=== PATIENT | male | born 1965 | race Caucasian/White ===

== ENCOUNTER 2020-12-14 12:51 | Observation (INO) ==
[2020-12-14 13:39] LABS: Hematocrit 52.4 % (37.5-50.1); Hemoglobin 16.7 g/dL (12.9-16.9); Mean Corpuscular HGB Conc 31.9 g/dL (31.6-35.5); Mean Corpuscular Volume 94.1 fL (83.0-100.0); Mean Platelet Volume 10.5 fL (9.4-12.4); Platelet Count 256 K/mcL (140-400); Red Blood Count 5.57 M/mcL (4.19-5.50); Red Cell Distribution Width 19.9 % (11.5-14.5)
[2020-12-14 13:52] LABS: INR 1.3; Prothrombin Time 14.6 Seconds (9.4-12.1)
[2020-12-14 13:54] LABS: Activated Partial Thrombo Time 26.8 Seconds (26.0-36.0)
[2020-12-14 14:00] LABS: Troponin I 0.05 ng/mL (< 0.04)
[2020-12-14 14:13] LABS: BUN/Creatinine Ratio 12 (6-26); Blood Urea Nitrogen 15 mg/dL (6-20); Calcium 8.9 mg/dL (8.6-10.3); Carbon Dioxide 24 mEq/L (23-29); Chloride 107 mEq/L (98-107); Glucose 116 mg/dL (70-105); Osmolality,Calculated 292 (280-300); Potassium 3.7 mEq/L (3.5-5.1); Sodium 140 mEq/L (136-145); eGFR For African Americans > 60 (> 60); eGFR For Non-African Americans 58 (> 60)
[2020-12-14] MEDS ORDERED: Aspirin 81 MG TAB.CHEW PO ONE (14:38)
[2020-12-14] MEDS ORDERED: Naloxone 0.4 MG/ML INJ IVP PRN (15:55)
[2020-12-14 16:15] LABS: Cholesterol 160 mg/dL (< 200); HDL Cholesterol 20 mg/dL (40-59); LDL Cholesterol,Calculated 120 mg/dL (< 100); Triglycerides 100 mg/dL (< 150)
[2020-12-14] MEDS ORDERED: Perflutren Lipid Microsphere 1.3 ML in 0.9 % Sodium Chloride 8.7 ML IVP PRN (17:02)
[2020-12-14] MEDS ORDERED: Furosemide 40 MG/4 ML VIAL IVP ONE (18:05)
[2020-12-14 20:49] LABS: Amphetamine Screen,Urine Negative ng/mL (Cutoff=1000); Barbiturate Screen,Urine Negative ng/mL (Cutoff=200); Benzodiazepines Screen,Urine Negative ng/mL (Cutoff=200); Cannabinoid Screen,Urine Positive ng/mL (Cutoff = 50); Cocaine Screen,Urine Negative ng/mL (Cutoff= 300); Opiate Screen,Urine Negative ng/mL (Cutoff=300); Phencyclidine Screen,Urine Negative ng/mL (Cutoff=25)
[2020-12-14] MEDS ORDERED: traZODone 50 MG TABLET PO SCH (21:00)
[2020-12-14] MEDS: Sacubitril/Valsartan 24/26 MG 1 TABLET PO SCH (22:01)
[2020-12-15 00:42] LABS: Estimated Average Glucose 123 mg/dl; Hemoglobin A1C 5.9 %
[2020-12-15 00:49] LABS: Basophils # 0.1 K/mcL (0.0-0.2); Eosinophils % 0.6 %; Hematocrit 47.7 % (37.5-50.1); Immature Granulocytes % 0.4 % (0-4); Lymphocytes # 1.1 K/mcL (0.6-4.6); Mean Corpuscular HGB Conc 31.7 g/dL (31.6-35.5); Mean Corpuscular Hemoglobin 29.5 pg (28.0-33.3); Mean Corpuscular Volume 93.2 fL (83.0-100.0); Mean Platelet Volume 10.4 fL (9.4-12.4); Monocytes # 0.8 K/mcL (0.0-1.3); Monocytes % 11.8 %; Neutrophils # 4.7 K/mcL (1.6-8.9); Platelet Count 231 K/mcL (140-400); Red Blood Count 5.12 M/mcL (4.19-5.50); Red Cell Distribution Width 19.2 % (11.5-14.5); Segmented Neutrophils % 70.2 %; White Blood Count 6.8 K/mcL (4.3-11.1)
[2020-12-15 00:52] LABS: Hemoglobin 15.1 g/dL (12.9-16.9)
[2020-12-15 01:01] LABS: BUN/Creatinine Ratio 12 (6-26); Blood Urea Nitrogen 14 mg/dL (6-20); Calcium 8.1 mg/dL (8.6-10.3); Carbon Dioxide 27 mEq/L (23-29); Chloride 105 mEq/L (98-107); Glucose 103 mg/dL (70-105); Magnesium 2.1 mg/dL (1.6-2.6); Osmolality,Calculated 291 (280-300); Potassium 3.4 mEq/L (3.5-5.1); Sodium 140 mEq/L (136-145); eGFR For African Americans > 60 (> 60); eGFR For Non-African Americans > 60 (> 60)
[2020-12-15] MEDS ORDERED: Isosorbide MONOnitrate (24 HR) 30 MG TAB.ER.24H PO SCH (09:00)
[2020-12-15] MEDS ORDERED: Metoprolol XL (24 HR) Succ 25 MG TAB.ER.24H PO SCH (09:00)
[2020-12-15] MEDS ORDERED: *HR* Amiodarone 200 MG TABLET PO SCH (09:00)
[2020-12-15] MEDS ORDERED: Aspirin Enteric Coated 81 MG Tablet PO SCH (09:00)
[2020-12-15] MEDS: Sacubitril/Valsartan 24/26 MG 1 TABLET PO SCH (09:58)
[2020-12-15] MEDS ORDERED: Metoprolol XL (24 HR) Succ 25 MG TAB.ER.24H PO ONE (12:48)
[2020-12-15] MEDS ORDERED: Spironolactone 12.5 MG TABLET PO SCH (13:00)
[2020-12-15 15:11] VITALS: BP 116/71
[2020-12-16] MEDS ORDERED: Metoprolol XL (24 HR) Succ 25 MG TAB.ER.24H PO SCH (09:00)
== END 2020-12-15 19:45 | disposition home or self-care (01) ==
LOC: 3BNU 12:51 → EMEROOARM 12:51 → 3BNU 16:57
PROVIDERS: ADMIT Internal Medicine; ATTEND Internal Medicine

== ENCOUNTER 2021-03-04 22:34 | Inpatient (IN) ==
[2021-03-05] MEDS ORDERED: Ondansetron 4 MG/2 ML VIAL IVP PRN (01:04)
[2021-03-05] MEDS ORDERED: Naloxone 0.4 MG/ML INJ IVP PRN (01:04)
[2021-03-05] MEDS ORDERED: 0.9 % Sodium Chloride 1,000 ML IVC ONE (01:38)
[2021-03-05] MEDS ORDERED: Dextrose Gel 15 GM/37.5 ML TUBE PO PRN ×2 (01:49)
[2021-03-05] MEDS ORDERED: D5% in Water 1,000 ML IVC PRN (01:49)
[2021-03-05] MEDS ORDERED: *HR* Dextrose 50 % in Water (Vial) 50 ML VIAL IVP PRN (01:49)
[2021-03-05 02:51] LABS: Basophils # 0.1 K/mcL (0.0-0.2); Basophils % 0.7 %; Eosinophils # 0.1 K/mcL (0.0-0.6); Eosinophils % 0.6 %; Hematocrit 41.3 % (37.5-50.1); Immature Granulocytes % 0.4 % (0-4); Lymphocytes # 1.7 K/mcL (0.6-4.6); Lymphocytes % 11.2 %; Mean Corpuscular HGB Conc 31.5 g/dL (31.6-35.5); Mean Corpuscular Hemoglobin 30.4 pg (28.0-33.3); Mean Corpuscular Volume 96.5 fL (83.0-100.0); Mean Platelet Volume 10.7 fL (9.4-12.4); Monocytes # 1.4 K/mcL (0.0-1.3); Monocytes % 9.5 %; Neutrophils # 11.5 K/mcL (1.6-8.9); Platelet Count 245 K/mcL (140-400); Red Blood Count 4.28 M/mcL (4.19-5.50); Red Cell Distribution Width 15.5 % (11.5-14.5); Segmented Neutrophils % 77.6 %; White Blood Count 14.9 K/mcL (4.3-11.1)
[2021-03-05 03:13] LABS: Alanine Aminotransferase 11 Units/L (7-52); Albumin 3.2 g/dL (3.5-5.7); Alkaline Phosphatase 59 Units/L (34-104); Aspartate Amino Transferase 16 Units/L (13-39); BUN/Creatinine Ratio 17 (6-26); Bilirubin,Total 0.7 mg/dL (0.3-1.0); Blood Urea Nitrogen 19 mg/dL (6-20); Calcium 8.7 mg/dL (8.6-10.3); Carbon Dioxide 24 mEq/L (23-29); Chloride 107 mEq/L (98-107); Globulin 3.1 g/dL (2.4-3.5); Glucose 82 mg/dL (70-105); Magnesium 1.9 mg/dL (1.6-2.6); Osmolality,Calculated 289 (280-300); Phosphorous 4.1 mg/dL (2.7-4.5); Potassium 4.3 mEq/L (3.5-5.1); Sodium 139 mEq/L (136-145); Total Protein 6.3 g/dL (6.4-8.9); eGFR For African Americans > 60 (> 60); eGFR For Non-African Americans > 60 (> 60)
[2021-03-05] MEDS: Insulin LISPRO 300 UNITS/3 ML VIAL SUBQ SCH ×3 (07:55→19:30)
[2021-03-05] MEDS: Piperacillin/Tazobactam 3.375 GM in 0.9 % Sodium Chloride Mini Bag 100 ML IVPB SCH ×2 (07:55→17:07)
[2021-03-05] MEDS: Sacubitril/Valsartan 24/26 MG 1 TABLET PO SCH (21:37)
[2021-03-05] MEDS: Isosorbide MONOnitrate (24 HR) 30 MG TAB.ER.24H PO SCH (21:38)
[2021-03-05] MEDS: Metoprolol XL (24 HR) Succ 25 MG TAB.ER.24H PO SCH (21:41)
[2021-03-06] MEDS: Piperacillin/Tazobactam 3.375 GM in 0.9 % Sodium Chloride Mini Bag 100 ML IVPB SCH ×3 (00:11→16:13)
[2021-03-06 01:11] LABS: Hematocrit 39.8 % (37.5-50.1); Hemoglobin 12.8 g/dL (12.9-16.9); Mean Corpuscular HGB Conc 32.2 g/dL (31.6-35.5); Mean Corpuscular Hemoglobin 30.9 pg (28.0-33.3); Mean Corpuscular Volume 96.1 fL (83.0-100.0); Mean Platelet Volume 10.9 fL (9.4-12.4); Platelet Count 238 K/mcL (140-400); Red Blood Count 4.14 M/mcL (4.19-5.50); Red Cell Distribution Width 15.6 % (11.5-14.5); White Blood Count 10.8 K/mcL (4.3-11.1)
[2021-03-06 01:32] LABS: Alanine Aminotransferase 9 Units/L (7-52); Albumin 3.2 g/dL (3.5-5.7); Albumin/Globulin Ratio 1.1 (1.1-2.2); Alkaline Phosphatase 58 Units/L (34-104); Aspartate Amino Transferase 13 Units/L (13-39); BUN/Creatinine Ratio 13 (6-26); Blood Urea Nitrogen 12 mg/dL (6-20); Calcium 8.5 mg/dL (8.6-10.3); Carbon Dioxide 23 mEq/L (23-29); Chloride 105 mEq/L (98-107); Glucose 72 mg/dL (70-105); Osmolality,Calculated 280 (280-300); Potassium 4.3 mEq/L (3.5-5.1); Sodium 136 mEq/L (136-145); Total Protein 6.2 g/dL (6.4-8.9); eGFR For African Americans > 60 (> 60); eGFR For Non-African Americans > 60 (> 60)
[2021-03-06] MEDS: Insulin LISPRO 300 UNITS/3 ML VIAL SUBQ SCH ×4 (06:09→18:28)
[2021-03-06] MEDS ORDERED: 0.9 % Sodium Chloride Mini Bag 100 ML ONE (08:44)
[2021-03-06] MEDS: *HR* Amiodarone 200 MG TABLET PO SCH (10:57)
[2021-03-06] MEDS: Sacubitril/Valsartan 24/26 MG 1 TABLET PO SCH ×2 (10:57→21:21)
[2021-03-06] MEDS: Isosorbide MONOnitrate (24 HR) 30 MG TAB.ER.24H PO SCH ×2 (10:57→21:21)
[2021-03-06] MEDS: Metoprolol XL (24 HR) Succ 25 MG TAB.ER.24H PO SCH ×2 (10:58→21:21)
[2021-03-06] MEDS: (Dapagliflozin Propanediol [Farxiga] 10 MG Tablet) PO SCH (10:59)
[2021-03-06] MEDS: Apixaban 5 MG TABLET PO SCH (21:20)
[2021-03-07] MEDS: Insulin LISPRO 300 UNITS/3 ML VIAL SUBQ SCH ×4 (00:12→20:12)
[2021-03-07] MEDS: Piperacillin/Tazobactam 3.375 GM in 0.9 % Sodium Chloride Mini Bag 100 ML IVPB SCH ×3 (00:23→20:12)
[2021-03-07 05:50] LABS: Hematocrit 43.6 % (37.5-50.1); Hemoglobin 13.7 g/dL (12.9-16.9); Mean Corpuscular HGB Conc 31.4 g/dL (31.6-35.5); Mean Corpuscular Hemoglobin 29.8 pg (28.0-33.3); Mean Platelet Volume 10.9 fL (9.4-12.4); Platelet Count 275 K/mcL (140-400); Red Blood Count 4.59 M/mcL (4.19-5.50); Red Cell Distribution Width 15.7 % (11.5-14.5)
[2021-03-07 06:09] LABS: Alanine Aminotransferase 8 Units/L (7-52); Albumin 3.4 g/dL (3.5-5.7); Alkaline Phosphatase 62 Units/L (34-104); Aspartate Amino Transferase 12 Units/L (13-39); BUN/Creatinine Ratio 10 (6-26); Bilirubin,Total 1.1 mg/dL (0.3-1.0); Blood Urea Nitrogen 8 mg/dL (6-20); Calcium 8.6 mg/dL (8.6-10.3); Carbon Dioxide 23 mEq/L (23-29); Chloride 105 mEq/L (98-107); Globulin 3.3 g/dL (2.4-3.5); Glucose 85 mg/dL (70-105); Osmolality,Calculated 280 (280-300); Potassium 4.2 mEq/L (3.5-5.1); Sodium 136 mEq/L (136-145); Total Protein 6.7 g/dL (6.4-8.9); eGFR For African Americans > 60 (> 60); eGFR For Non-African Americans > 60 (> 60)
[2021-03-07 08:16] VITALS: TEMP 97.6; O2SAT 96
[2021-03-07] MEDS: Apixaban 5 MG TABLET PO SCH (08:40)
[2021-03-07] MEDS: Sacubitril/Valsartan 24/26 MG 1 TABLET PO SCH (08:40)
[2021-03-07] MEDS: (Dapagliflozin Propanediol [Farxiga] 10 MG Tablet) PO SCH (08:41)
[2021-03-07] MEDS: *HR* Amiodarone 200 MG TABLET PO SCH (08:41)
[2021-03-07] MEDS: Isosorbide MONOnitrate (24 HR) 30 MG TAB.ER.24H PO SCH (08:41)
[2021-03-07] MEDS: Metoprolol XL (24 HR) Succ 25 MG TAB.ER.24H PO SCH (08:41)
[2021-03-07 15:17] VITALS: BP 109/75; PULSE 51
== END 2021-03-07 20:19 | disposition home or self-care (01) | DRG 244 ==
LOC: 3BNU → SUATTDRO 03-05 00:28
PROVIDERS: ADMIT Family Medicine; ATTEND Internal Medicine

== ENCOUNTER 2021-03-15 10:31 | Inpatient (IN) ==
[2021-03-15] MEDS ORDERED: Naloxone 0.4 MG/ML INJ IVP PRN (15:37)
[2021-03-15 16:52] LABS: Basophils # 0.1 K/mcL (0.0-0.2); Basophils % 0.8 %; Eosinophils % 0.2 %; Hematocrit 45.4 % (37.5-50.1); Hemoglobin 14.9 g/dL (12.9-16.9); Immature Granulocytes % 0.6 % (0-4); Lymphocytes # 1.5 K/mcL (0.6-4.6); Lymphocytes % 14.9 %; Mean Corpuscular HGB Conc 32.8 g/dL (31.6-35.5); Mean Corpuscular Hemoglobin 31.7 pg (28.0-33.3); Mean Corpuscular Volume 96.6 fL (83.0-100.0); Mean Platelet Volume 11.1 fL (9.4-12.4); Monocytes # 1.2 K/mcL (0.0-1.3); Monocytes % 11.7 %; Neutrophils # 7.1 K/mcL (1.6-8.9); Nucleated Red Blood Cells 0.5 /100 WBC (0); Platelet Count 256 K/mcL (140-400); Red Cell Distribution Width 18.4 % (11.5-14.5); Segmented Neutrophils % 71.8 %; White Blood Count 9.8 K/mcL (4.3-11.1)
[2021-03-15] MEDS: 0.9 % Sodium Chloride 1,000 ML IVC SCH (16:52)
[2021-03-15 17:18] LABS: Alanine Aminotransferase 162 Units/L (7-52); Albumin 2.2 g/dL (3.5-5.7); Alkaline Phosphatase 155 Units/L (34-104); Aspartate Amino Transferase 62 Units/L (13-39); BUN/Creatinine Ratio 9 (6-26); Bilirubin,Total 0.9 mg/dL (0.3-1.0); Blood Urea Nitrogen 7 mg/dL (6-20); Carbon Dioxide 20 mEq/L (23-29); Chloride 116 mEq/L (98-107); Globulin 2.2 g/dL (2.4-3.5); Glucose 77 mg/dL (70-105); Osmolality,Calculated 289 (280-300); Potassium 3.2 mEq/L (3.5-5.1); Sodium 141 mEq/L (136-145); Total Protein 4.4 g/dL (6.4-8.9); eGFR For African Americans > 60 (> 60); eGFR For Non-African Americans > 60 (> 60)
[2021-03-15] MEDS ORDERED: Nitroglycerin 0.4 MG TAB.SUBL SL PRN (17:43)
[2021-03-15] MEDS: Calcium Gluconate 1gm/50mL 1 GM/50 ML BAG IVPB SCH ×2 (17:49→18:38)
[2021-03-15] MEDS ORDERED: Potassium Chloride Elixir 20 MEQ/15 ML UDC PO ONE (18:08)
[2021-03-15 20:45] LABS: Influenza A PCR Negative (Negative); Influenza B PCR Negative (Negative); Resp. Syncytial Virus PCR Negative (Negative)
[2021-03-15 20:46] LABS: SARS-CoV-2 by PCR (In House) Negative (Negative)
[2021-03-15] MEDS: Metoprolol XL (24 HR) Succ 25 MG TAB.ER.24H PO SCH (21:05)
[2021-03-15] MEDS: Sacubitril/Valsartan 24/26 MG 1 TABLET PO SCH (21:05)
[2021-03-15] MEDS: Isosorbide MONOnitrate (24 HR) 30 MG TAB.ER.24H PO SCH (21:05)
[2021-03-16] MEDS: Cefepime HCl 1,000 MG in Water for inj. (sterile) 10 ML IVP SCH ×3 (00:45→18:01)
[2021-03-16] MEDS: 0.9 % Sodium Chloride 1,000 ML IVC SCH ×3 (00:45→18:00)
[2021-03-16] MEDS: MetroNIDAZOLE 500 MG/100 ML 500 MG/100 ML BAG IVPB SCH ×3 (01:45→18:01)
[2021-03-16 06:16] LABS: Basophils # 0.1 K/mcL (0.0-0.2); Basophils % 0.8 %; Eosinophils % 0.4 %; Hematocrit 43.9 % (37.5-50.1); Hemoglobin 14.5 g/dL (12.9-16.9); Immature Granulocytes % 0.5 % (0-4); Lymphocytes # 1.3 K/mcL (0.6-4.6); Lymphocytes % 15.9 %; Mean Corpuscular Hemoglobin 31.6 pg (28.0-33.3); Mean Corpuscular Volume 95.6 fL (83.0-100.0); Mean Platelet Volume 11.2 fL (9.4-12.4); Monocytes # 1.1 K/mcL (0.0-1.3); Monocytes % 12.4 %; Neutrophils # 5.9 K/mcL (1.6-8.9); Nucleated Red Blood Cells 0.5 /100 WBC (0); Platelet Count 258 K/mcL (140-400); Red Blood Count 4.59 M/mcL (4.19-5.50); Red Cell Distribution Width 18.3 % (11.5-14.5); White Blood Count 8.5 K/mcL (4.3-11.1)
[2021-03-16 06:32] LABS: BUN/Creatinine Ratio 10 (6-26); Blood Urea Nitrogen 9 mg/dL (6-20); Calcium 8.4 mg/dL (8.6-10.3); Carbon Dioxide 22 mEq/L (23-29); Chloride 110 mEq/L (98-107); Glucose 80 mg/dL (70-105); Osmolality,Calculated 286 (280-300); Potassium 4.6 mEq/L (3.5-5.1); Sodium 139 mEq/L (136-145); eGFR For African Americans > 60 (> 60); eGFR For Non-African Americans > 60 (> 60)
[2021-03-16] MEDS: Isosorbide MONOnitrate (24 HR) 30 MG TAB.ER.24H PO SCH ×2 (08:44→20:26)
[2021-03-16] MEDS: Sacubitril/Valsartan 24/26 MG 1 TABLET PO SCH ×2 (08:45→20:26)
[2021-03-16] MEDS: Metoprolol XL (24 HR) Succ 25 MG TAB.ER.24H PO SCH ×2 (08:45→20:26)
[2021-03-16] MEDS ORDERED: Lidocaine -MPF 1% 5 ML AMPUL INFILT ONE (08:59)
[2021-03-16] MEDS ORDERED: *HR* Dextrose 50 % in Water (Vial) 50 ML VIAL IVP PRN (09:00)
[2021-03-16] MEDS ORDERED: traZODone 50 MG TABLET PO SCH ×2 (09:00→21:00)
[2021-03-16] MEDS ORDERED: D5% in Water 1,000 ML IVC PRN (09:00)
[2021-03-16] MEDS ORDERED: Dextrose Gel 15 GM/37.5 ML TUBE PO PRN ×2 (09:00)
[2021-03-16] MEDS ORDERED: *HR* Amiodarone 200 MG TABLET PO SCH (09:00)
[2021-03-16 09:52] LABS: Alanine Aminotransferase 186 Units/L (7-52); Albumin 2.9 g/dL (3.5-5.7); Alkaline Phosphatase 214 Units/L (34-104); Aspartate Amino Transferase 67 Units/L (13-39); Bilirubin,Direct 0.5 mg/dL (0.0-0.2); Bilirubin,Indirect 0.8 mg/dL (0.0-1.0); Bilirubin,Total 1.3 mg/dL (0.3-1.0); Globulin 2.8 g/dL (2.4-3.5); Magnesium 1.6 mg/dL (1.6-2.6); Phosphorous 2.4 mg/dL (2.7-4.5); Total Protein 5.7 g/dL (6.4-8.9)
[2021-03-16] MEDS ORDERED: D10% in Water 500 ML IVC PRN (11:27)
[2021-03-16] MEDS: Insulin LISPRO 300 UNITS/3 ML VIAL SUBQ SCH ×3 (12:34→20:27)
[2021-03-16 13:50] LABS: Hepatitis B Surface Antigen Nonreactive (Nonreactive)
[2021-03-16 14:19] LABS: Hepatitis B Core IgM Nonreactive (Nonreactive)
[2021-03-16 14:20] LABS: Hepatitis A Antibody IgM Nonreactive (Nonreactive); Hepatitis C Virus Antibody Nonreactive (Nonreactive)
[2021-03-16] MEDS ORDERED: Clinimix E 5%-15% SOLUTION 2,000 ML with MVI, adult with vitamin K 10 ML IVC SCH (17:00)
[2021-03-16] MEDS ORDERED: Morphine Sulfate 2 MG/ML SYRINGE IVP ONE (20:05)
[2021-03-16] MEDS ORDERED: Melatonin 3 MG TABLET PO PRN (20:31)
[2021-03-17] MEDS: Cefepime HCl 1,000 MG in Water for inj. (sterile) 10 ML IVP SCH ×2 (00:59→17:25)
[2021-03-17] MEDS: MetroNIDAZOLE 500 MG/100 ML 500 MG/100 ML BAG IVPB SCH ×2 (01:00→17:26)
[2021-03-17] MEDS: Insulin LISPRO 300 UNITS/3 ML VIAL SUBQ SCH ×4 (01:01→20:00)
[2021-03-17] MEDS: 0.9 % Sodium Chloride 1,000 ML IVC SCH (01:04)
[2021-03-17 06:09] LABS: Basophils # 0.1 K/mcL (0.0-0.2); Basophils % 0.5 %; Eosinophils % 0.2 %; Hematocrit 41.5 % (37.5-50.1); Hemoglobin 13.4 g/dL (12.9-16.9); Immature Granulocytes % 0.5 % (0-4); Lymphocytes # 0.9 K/mcL (0.6-4.6); Lymphocytes % 9.3 %; Mean Corpuscular HGB Conc 32.3 g/dL (31.6-35.5); Mean Corpuscular Hemoglobin 31.7 pg (28.0-33.3); Mean Corpuscular Volume 98.1 fL (83.0-100.0); Monocytes # 1.6 K/mcL (0.0-1.3); Monocytes % 16.3 %; Neutrophils # 6.9 K/mcL (1.6-8.9); Nucleated Red Blood Cells 0.5 /100 WBC (0); Platelet Count 223 K/mcL (140-400); Red Blood Count 4.23 M/mcL (4.19-5.50); Red Cell Distribution Width 18.6 % (11.5-14.5); Segmented Neutrophils % 73.2 %; White Blood Count 9.5 K/mcL (4.3-11.1)
[2021-03-17] MEDS: Metoprolol XL (24 HR) Succ 25 MG TAB.ER.24H PO SCH (06:34)
[2021-03-17 06:41] LABS: BUN/Creatinine Ratio 14 (6-26); Blood Urea Nitrogen 12 mg/dL (6-20); Calcium 7.9 mg/dL (8.6-10.3); Carbon Dioxide 24 mEq/L (23-29); Chloride 110 mEq/L (98-107); Glucose 95 mg/dL (70-105); Magnesium 1.9 mg/dL (1.6-2.6); Osmolality,Calculated 290 (280-300); Phosphorous 2.8 mg/dL (2.7-4.5); Potassium 4.4 mEq/L (3.5-5.1); Sodium 140 mEq/L (136-145); Triglycerides 93 mg/dL (< 150); eGFR For African Americans > 60 (> 60); eGFR For Non-African Americans > 60 (> 60)
[2021-03-17] MEDS ORDERED: *HR* Propofol 200 MG/20 ML VIAL IVP ONE (07:05)
[2021-03-17] MEDS ORDERED: Ondansetron 4 MG/2 ML VIAL ONE ×2 (07:06→12:22)
[2021-03-17] MEDS ORDERED: *HR* FentaNYL (PF) 100 MCG/2 ML VIAL ONE ×2 (07:06→10:27)
[2021-03-17] MEDS ORDERED: *HR* Midazolam HCl 2 MG/2 ML VIAL ONE (07:06)
[2021-03-17] MEDS ORDERED: Lidocaine -MPF 2% 2 ML VIAL ONE ×2 (07:06→08:13)
[2021-03-17] MEDS ORDERED: Lidocaine HCL 4 ML Topical Solution (Laryng-O-Jet Kit Sterile Pak) TP ONE ×2 (07:06→07:07)
[2021-03-17] MEDS ORDERED: *HR* Rocuronium Bromide 50 MG/5 ML VIAL ONE ×2 (07:06→10:24)
[2021-03-17] MEDS ORDERED: *HR* Etomidate 40 MG/20 ML VIAL IVP ONE (07:13)
[2021-03-17] MEDS ORDERED: *HR* Phenylephrine 10 MG/ML VIAL ONE (07:16)
[2021-03-17] MEDS ORDERED: EPHEDrine 50 MG/ML VIAL ONE (07:18)
[2021-03-17] MEDS ORDERED: *HR* Vasopressin 20 UNIT/ML VIAL ONE (07:23)
[2021-03-17] MEDS ORDERED: Albumin Human 5% 25.0 GM/500 ML IV.SOLN ONE (07:23)
[2021-03-17] MEDS ORDERED: Acetaminophen IV 1,000 MG/100 ML BAG IVPB ONE (07:24)
[2021-03-17] MEDS ORDERED: Heparin 1,000 UNITS/500 mL 500 ML ONE (07:38)
[2021-03-17] MEDS ORDERED: *HR* HYDROmorphone PF 0.5 MG/0.5 ML SYRINGE IVP PRN (09:46)
[2021-03-17] MEDS ORDERED: *HR* OxyCODONE Immed Rel 5 MG TABLET PO PRN (09:46)
[2021-03-17] MEDS ORDERED: Promethazine 6.25 MG in Water for inj. (sterile) 20 ML IVPB PRN (09:46)
[2021-03-17] MEDS ORDERED: Ondansetron 4 MG/2 ML VIAL IVP PRN (09:46)
[2021-03-17 10:59] LABS: Alanine Aminotransferase 148 Units/L (7-52); Albumin 2.8 g/dL (3.5-5.7); Aspartate Amino Transferase 50 Units/L (13-39); Bilirubin,Direct 0.4 mg/dL (0.0-0.2); Bilirubin,Indirect 0.8 mg/dL (0.0-1.0); Bilirubin,Total 1.2 mg/dL (0.3-1.0); Globulin 2.8 g/dL (2.4-3.5); Total Protein 5.6 g/dL (6.4-8.9)
[2021-03-17 11:35] LABS: Alkaline Phosphatase 185 Units/L (34-104)
[2021-03-17] MEDS ORDERED: *HR* HYDROMORPHONE 2 MG/ML VIAL ONE (11:46)
[2021-03-17] MEDS ORDERED: Sugammadex Sodium 200 MG/2 ML VIAL IV ONE (11:49)
[2021-03-17] MEDS ORDERED: Naloxone 0.4 MG/ML INJ IVP PRN (14:33)
[2021-03-17] MEDS ORDERED: Morphine PCA 30 MG/ 30 ML 30 ML PCA.VIAL IVC PRN (14:33)
[2021-03-17] MEDS ORDERED: Clinimix E 5%-15% SOLUTION 2,000 ML with MVI, adult with vitamin K 10 ML IVC SCH ×3 (14:33→17:00)
[2021-03-17] MEDS ORDERED: *HR* Dextrose 50 % in Water (Vial) 50 ML VIAL IVP PRN (14:33)
[2021-03-17] MEDS ORDERED: Melatonin 3 MG TABLET PO PRN (14:33)
[2021-03-17] MEDS ORDERED: Dextrose Gel 15 GM/37.5 ML TUBE PO PRN ×2 (14:33)
[2021-03-17] MEDS ORDERED: Nitroglycerin 0.4 MG TAB.SUBL SL PRN (14:33)
[2021-03-17] MEDS ORDERED: D5% in Water 1,000 ML IVC PRN (14:33)
[2021-03-17] MEDS ORDERED: D10% in Water 500 ML IVC PRN (14:33)
[2021-03-17] MEDS ORDERED: *HR* LORazepam 2 MG/ML VIAL IVP PRN (14:33)
[2021-03-17] MEDS: *HR* Metoprolol 5 MG/5 ML VIAL IVP SCH (17:27)
[2021-03-17] MEDS: *HR* Heparin 5,000 UNIT/ML VIAL SQ SCH (17:27)
[2021-03-17] MEDS ORDERED: cefOXitin 1,000 MG, Sodium Chloride IRRigation 1,000 ML IR ONE (17:30)
[2021-03-17] MEDS ORDERED: 0.9 % Sodium Chloride 500 ML ONE (17:46)
[2021-03-17] MEDS ORDERED: Ketorolac 15 MG/ML VIAL IVP SCH (18:00)
[2021-03-17] MEDS ORDERED: *HR* Metoprolol 5 MG/5 ML VIAL IVP SCH (18:00)
[2021-03-17] MEDS: Acetaminophen IV 1,000 MG/100 ML BAG IVPB SCH (18:39)
[2021-03-17] MEDS ORDERED: traZODone 50 MG TABLET PO SCH (21:00)
[2021-03-17] MEDS ORDERED: Metoprolol XL (24 HR) Succ 25 MG TAB.ER.24H PO SCH (21:00)
[2021-03-18] MEDS: MetroNIDAZOLE 500 MG/100 ML 500 MG/100 ML BAG IVPB SCH ×5 (00:06→23:57)
[2021-03-18] MEDS: Cefepime HCl 1,000 MG in Water for inj. (sterile) 10 ML IVP SCH ×5 (00:07→23:57)
[2021-03-18] MEDS: Acetaminophen IV 1,000 MG/100 ML BAG IVPB SCH ×4 (00:07→23:51)
[2021-03-18] MEDS: *HR* Metoprolol 5 MG/5 ML VIAL IVP SCH ×2 (00:08→06:13)
[2021-03-18] MEDS: Insulin LISPRO 300 UNITS/3 ML VIAL SUBQ SCH ×6 (00:09→21:58)
[2021-03-18] MEDS: *HR* Heparin 5,000 UNIT/ML VIAL SQ SCH ×2 (06:14→17:53)
[2021-03-18 08:04] LABS: Basophils % 0.1 %; Hematocrit 45.3 % (37.5-50.1); Hemoglobin 14.5 g/dL (12.9-16.9); Immature Granulocytes % 0.6 % (0-4); Lymphocytes # 0.5 K/mcL (0.6-4.6); Lymphocytes % 3.1 %; Mean Corpuscular Hemoglobin 31.8 pg (28.0-33.3); Mean Corpuscular Volume 99.3 fL (83.0-100.0); Mean Platelet Volume 11.3 fL (9.4-12.4); Monocytes # 1.8 K/mcL (0.0-1.3); Monocytes % 11.3 %; Neutrophils # 13.6 K/mcL (1.6-8.9); Nucleated Red Blood Cells 0.2 /100 WBC (0); Platelet Count 219 K/mcL (140-400); Red Blood Count 4.56 M/mcL (4.19-5.50); Red Cell Distribution Width 18.8 % (11.5-14.5); Segmented Neutrophils % 84.9 %
[2021-03-18 08:21] LABS: Albumin 3.3 g/dL (3.5-5.7); Albumin/Globulin Ratio 1.1 (1.1-2.2); Bilirubin,Direct 0.2 mg/dL (0.0-0.2); Bilirubin,Indirect 0.5 mg/dL (0.0-1.0); Bilirubin,Total 0.7 mg/dL (0.3-1.0); Globulin 3.1 g/dL (2.4-3.5); Total Protein 6.4 g/dL (6.4-8.9)
[2021-03-18 08:22] LABS: BUN/Creatinine Ratio 17 (6-26); Blood Urea Nitrogen 13 mg/dL (6-20); Calcium 8.6 mg/dL (8.6-10.3); Carbon Dioxide 26 mEq/L (23-29); Chloride 107 mEq/L (98-107); Glucose 212 mg/dL (70-105); Osmolality,Calculated 296 (280-300); Phosphorous 2.7 mg/dL (2.7-4.5); Potassium 4.2 mEq/L (3.5-5.1); Sodium 140 mEq/L (136-145); eGFR For African Americans > 60 (> 60); eGFR For Non-African Americans > 60 (> 60)
[2021-03-18] MEDS ORDERED: *HR* Amiodarone 200 MG TABLET PO SCH (09:00)
[2021-03-18] MEDS ORDERED: Pantoprazole 40 MG VIAL IVP SCH ×2 (09:00)
[2021-03-18] MEDS: Pantoprazole 40 MG VIAL IVP SCH (09:07)
[2021-03-18] MEDS ORDERED: Chloraseptic Spray 177 ML BOTTLE MM PRN (13:04)
[2021-03-18] MEDS ORDERED: Saliva Stimulant 44.3ml BOTTLE PO PRN (13:04)
[2021-03-18] MEDS: 0.9 % Sodium Chloride 1,000 ML IVC SCH (13:33)
[2021-03-18] MEDS ORDERED: Clinimix E 5%-15% SOLUTION 2,000 ML with MVI, adult with vitamin K 10 ML IVC SCH (17:00)
[2021-03-18] MEDS: Ketorolac 15 MG/ML VIAL IVP SCH ×2 (17:53→23:57)
[2021-03-18] MEDS ORDERED: *HR* Metoprolol 5 MG/5 ML VIAL IVP SCH (18:00)
[2021-03-19] MEDS: Insulin LISPRO 300 UNITS/3 ML VIAL SUBQ SCH ×6 (00:05→20:58)
[2021-03-19 04:56] LABS: Basophils % 0.1 %; Hematocrit 38.8 % (37.5-50.1); Immature Granulocytes % 0.4 % (0-4); Lymphocytes # 0.5 K/mcL (0.6-4.6); Lymphocytes % 3.6 %; Mean Corpuscular HGB Conc 31.4 g/dL (31.6-35.5); Mean Corpuscular Hemoglobin 31.3 pg (28.0-33.3); Mean Corpuscular Volume 99.5 fL (83.0-100.0); Mean Platelet Volume 11.3 fL (9.4-12.4); Monocytes # 1.1 K/mcL (0.0-1.3); Monocytes % 7.7 %; Neutrophils # 12.1 K/mcL (1.6-8.9); Nucleated Red Blood Cells 0.1 /100 WBC (0); Platelet Count 159 K/mcL (140-400); Red Cell Distribution Width 18.6 % (11.5-14.5); Segmented Neutrophils % 88.2 %; White Blood Count 13.7 K/mcL (4.3-11.1)
[2021-03-19 04:57] LABS: Hemoglobin 12.2 g/dL (12.9-16.9)
[2021-03-19] MEDS: *HR* Heparin 5,000 UNIT/ML VIAL SQ SCH ×2 (05:08→17:53)
[2021-03-19] MEDS: Ketorolac 15 MG/ML VIAL IVP SCH ×4 (05:08→23:35)
[2021-03-19 05:18] LABS: BUN/Creatinine Ratio 22 (6-26); Blood Urea Nitrogen 16 mg/dL (6-20); Calcium 8.4 mg/dL (8.6-10.3); Carbon Dioxide 29 mEq/L (23-29); Chloride 109 mEq/L (98-107); Glucose 141 mg/dL (70-105); Magnesium 1.7 mg/dL (1.6-2.6); Osmolality,Calculated 294 (280-300); Phosphorous 3.2 mg/dL (2.7-4.5); Potassium 4.6 mEq/L (3.5-5.1); Sodium 140 mEq/L (136-145); eGFR For African Americans > 60 (> 60); eGFR For Non-African Americans > 60 (> 60)
[2021-03-19] MEDS: Acetaminophen IV 1,000 MG/100 ML BAG IVPB SCH ×3 (10:04→23:31)
[2021-03-19] MEDS: Cefepime HCl 1,000 MG in Water for inj. (sterile) 10 ML IVP SCH ×3 (10:07→23:34)
[2021-03-19] MEDS: MetroNIDAZOLE 500 MG/100 ML 500 MG/100 ML BAG IVPB SCH ×3 (10:07→23:35)
[2021-03-19] MEDS: Pantoprazole 40 MG VIAL IVP SCH (10:08)
[2021-03-19] MEDS ORDERED: Clinimix E 5%-20% SOLUTION 2,000 ML with MVI, adult with vitamin K 10 ML IVC SCH (17:00)
[2021-03-20] MEDS: Insulin LISPRO 300 UNITS/3 ML VIAL SUBQ SCH ×6 (02:47→23:28)
[2021-03-20] MEDS: Ketorolac 15 MG/ML VIAL IVP SCH ×4 (05:11→22:22)
[2021-03-20] MEDS: *HR* Heparin 5,000 UNIT/ML VIAL SQ SCH ×2 (05:11→18:20)
[2021-03-20 06:37] LABS: Basophils % 0.1 %; Eosinophils % 0.1 %; Hematocrit 41.3 % (37.5-50.1); Hemoglobin 13.1 g/dL (12.9-16.9); Immature Granulocytes % 0.7 % (0-4); Lymphocytes # 0.8 K/mcL (0.6-4.6); Lymphocytes % 5.6 %; Mean Corpuscular HGB Conc 31.7 g/dL (31.6-35.5); Mean Corpuscular Hemoglobin 31.3 pg (28.0-33.3); Mean Corpuscular Volume 98.6 fL (83.0-100.0); Mean Platelet Volume 11.9 fL (9.4-12.4); Monocytes # 1.7 K/mcL (0.0-1.3); Monocytes % 11.2 %; Neutrophils # 12.3 K/mcL (1.6-8.9); Platelet Count 156 K/mcL (140-400); Red Blood Count 4.19 M/mcL (4.19-5.50); Red Cell Distribution Width 18.5 % (11.5-14.5); Segmented Neutrophils % 82.3 %; White Blood Count 14.9 K/mcL (4.3-11.1)
[2021-03-20 06:59] LABS: BUN/Creatinine Ratio 26 (6-26); Blood Urea Nitrogen 19 mg/dL (6-20); Calcium 8.3 mg/dL (8.6-10.3); Carbon Dioxide 28 mEq/L (23-29); Chloride 105 mEq/L (98-107); Glucose 145 mg/dL (70-105); Magnesium 1.8 mg/dL (1.6-2.6); Osmolality,Calculated 287 (280-300); Phosphorous 3.7 mg/dL (2.7-4.5); Potassium 3.9 mEq/L (3.5-5.1); Sodium 136 mEq/L (136-145); eGFR For African Americans > 60 (> 60); eGFR For Non-African Americans > 60 (> 60)
[2021-03-20] MEDS: Acetaminophen IV 1,000 MG/100 ML BAG IVPB SCH ×2 (10:05→16:07)
[2021-03-20] MEDS: MetroNIDAZOLE 500 MG/100 ML 500 MG/100 ML BAG IVPB SCH (10:23)
[2021-03-20] MEDS: Pantoprazole 40 MG VIAL IVP SCH (10:25)
[2021-03-20] MEDS: Cefepime HCl 1,000 MG in Water for inj. (sterile) 10 ML IVP SCH ×2 (10:27→16:06)
[2021-03-20] MEDS: metroNIDAZOLE 500 MG TABLET PO SCH ×2 (15:48→22:18)
[2021-03-20] MEDS ORDERED: Clinimix E 5%-20% SOLUTION 2,000 ML with MVI, adult with vitamin K 10 ML IVC SCH (17:00)
[2021-03-20] MEDS: Isosorbide MONOnitrate (24 HR) 30 MG TAB.ER.24H PO SCH (22:16)
[2021-03-20] MEDS: Sacubitril/Valsartan 24/26 MG 1 TABLET PO SCH (22:20)
[2021-03-21] MEDS: Acetaminophen IV 1,000 MG/100 ML BAG IVPB SCH ×3 (01:02→16:13)
[2021-03-21] MEDS: Cefepime HCl 1,000 MG in Water for inj. (sterile) 10 ML IVP SCH ×4 (01:03→23:55)
[2021-03-21] MEDS: Insulin LISPRO 300 UNITS/3 ML VIAL SUBQ SCH ×6 (01:52→21:04)
[2021-03-21 04:59] LABS: Basophils % 0.2 %; Eosinophils % 0.4 %; Hematocrit 37.7 % (37.5-50.1); Immature Granulocytes % 0.6 % (0-4); Lymphocytes # 0.8 K/mcL (0.6-4.6); Lymphocytes % 7.8 %; Mean Corpuscular HGB Conc 30.2 g/dL (31.6-35.5); Mean Corpuscular Hemoglobin 31.4 pg (28.0-33.3); Mean Corpuscular Volume 103.9 fL (83.0-100.0); Mean Platelet Volume 11.6 fL (9.4-12.4); Monocytes # 1.1 K/mcL (0.0-1.3); Monocytes % 10.8 %; Neutrophils # 8.3 K/mcL (1.6-8.9); Platelet Count 148 K/mcL (140-400); Red Blood Count 3.63 M/mcL (4.19-5.50); Red Cell Distribution Width 18.6 % (11.5-14.5); Segmented Neutrophils % 80.2 %; White Blood Count 10.3 K/mcL (4.3-11.1)
[2021-03-21 05:05] LABS: Hemoglobin 11.4 g/dL (12.9-16.9)
[2021-03-21] MEDS: Ketorolac 15 MG/ML VIAL IVP SCH ×3 (05:32→17:42)
[2021-03-21] MEDS: *HR* Heparin 5,000 UNIT/ML VIAL SQ SCH (05:33)
[2021-03-21 07:43] LABS: BUN/Creatinine Ratio 25 (6-26); Blood Urea Nitrogen 15 mg/dL (6-20); Carbon Dioxide 28 mEq/L (23-29); Chloride 108 mEq/L (98-107); Glucose 144 mg/dL (70-105); Magnesium 1.7 mg/dL (1.6-2.6); Osmolality,Calculated 291 (280-300); Phosphorous 3.4 mg/dL (2.7-4.5); Sodium 139 mEq/L (136-145); eGFR For African Americans > 60 (> 60); eGFR For Non-African Americans > 60 (> 60)
[2021-03-21] MEDS: Sacubitril/Valsartan 24/26 MG 1 TABLET PO SCH ×2 (10:14→21:03)
[2021-03-21] MEDS: Cyanocobalamin (B-12) 1,000 MCG TABLET PO SCH (10:14)
[2021-03-21] MEDS: Isosorbide MONOnitrate (24 HR) 30 MG TAB.ER.24H PO SCH ×2 (10:14→21:03)
[2021-03-21] MEDS: metroNIDAZOLE 500 MG TABLET PO SCH ×3 (10:14→21:03)
[2021-03-21] MEDS: Pantoprazole 40 MG VIAL IVP SCH (10:16)
[2021-03-21] MEDS: Apixaban 5 MG TABLET PO SCH ×2 (10:44→21:03)
[2021-03-21] MEDS ORDERED: Clinimix E 5%-20% SOLUTION 2,000 ML with MVI, adult with vitamin K 10 ML IVC SCH (17:00)
[2021-03-22] MEDS: Insulin LISPRO 300 UNITS/3 ML VIAL SUBQ SCH ×4 (00:18→17:08)
[2021-03-22] MEDS: Acetaminophen IV 1,000 MG/100 ML BAG IVPB SCH ×2 (00:57→09:31)
[2021-03-22] MEDS: Ketorolac 15 MG/ML VIAL IVP SCH ×2 (05:40)
[2021-03-22] MEDS: Pantoprazole 40 MG VIAL IVP SCH (09:35)
[2021-03-22] MEDS: Cefepime HCl 1,000 MG in Water for inj. (sterile) 10 ML IVP SCH ×2 (09:35→17:12)
[2021-03-22] MEDS: metroNIDAZOLE 500 MG TABLET PO SCH ×2 (09:36→17:11)
[2021-03-22] MEDS: Isosorbide MONOnitrate (24 HR) 30 MG TAB.ER.24H PO SCH (09:36)
[2021-03-22] MEDS: Sacubitril/Valsartan 24/26 MG 1 TABLET PO SCH (09:36)
[2021-03-22] MEDS: Cyanocobalamin (B-12) 1,000 MCG TABLET PO SCH (09:36)
[2021-03-22] MEDS: Apixaban 5 MG TABLET PO SCH (09:36)
[2021-03-22 10:02] LABS: Basophils % 0.2 %; Eosinophils # 0.1 K/mcL (0.0-0.6); Eosinophils % 0.5 %; Hematocrit 43.2 % (37.5-50.1); Immature Granulocytes % 0.7 % (0-4); Lymphocytes # 0.7 K/mcL (0.6-4.6); Lymphocytes % 4.7 %; Mean Corpuscular HGB Conc 32.4 g/dL (31.6-35.5); Mean Corpuscular Hemoglobin 31.3 pg (28.0-33.3); Mean Platelet Volume 11.5 fL (9.4-12.4); Monocytes # 1.2 K/mcL (0.0-1.3); Monocytes % 8.3 %; Neutrophils # 12.7 K/mcL (1.6-8.9); Platelet Count 192 K/mcL (140-400); Red Blood Count 4.48 M/mcL (4.19-5.50); Segmented Neutrophils % 85.6 %; White Blood Count 14.9 K/mcL (4.3-11.1)
[2021-03-22 10:27] LABS: BUN/Creatinine Ratio 21 (6-26); Blood Urea Nitrogen 15 mg/dL (6-20); Calcium 8.5 mg/dL (8.6-10.3); Carbon Dioxide 27 mEq/L (23-29); Chloride 105 mEq/L (98-107); Glucose 100 mg/dL (70-105); Magnesium 1.6 mg/dL (1.6-2.6); Osmolality,Calculated 285 (280-300); Phosphorous 2.5 mg/dL (2.7-4.5); Potassium 4.5 mEq/L (3.5-5.1); Sodium 137 mEq/L (136-145); eGFR For African Americans > 60 (> 60); eGFR For Non-African Americans > 60 (> 60)
[2021-03-22 11:03] VITALS: O2SAT 91
[2021-03-22 11:17] LABS: Mean Corpuscular Volume 96.4 fL (83.0-100.0)
[2021-03-22] MEDS: *HR* OxyCODONE/APAP 10/325 TABLET PO PRN ×2 (12:15→18:07)
[2021-03-22 12:50] LABS: Hematocrit 42.4 % (37.5-50.1); Hemoglobin 13.6 g/dL (12.9-16.9)
[2021-03-22 14:24] VITALS: BP 119/85; PULSE 66; TEMP 97.5
== END 2021-03-22 18:23 | disposition home or self-care (01) | DRG 441 ==
LOC: 3ANU → SUATTDRO 15:03
PROVIDERS: ADMIT Internal Medicine; ATTEND Internal Medicine

== ENCOUNTER 2021-03-24 00:39 | Inpatient (IN) ==
[2021-03-24] MEDS ORDERED: Isovue-370 500 ML BOTTLE IVP ONE ×2 (01:21→04:56)
[2021-03-24] MEDS ORDERED: Ondansetron 4 MG/2 ML VIAL IVP ONE (01:22)
[2021-03-24] MEDS ORDERED: Morphine Sulfate 2 MG/ML SYRINGE IVP ONE (01:22)
[2021-03-24] MEDS ORDERED: 0.9 % Sodium Chloride 1,000 ML IVC ONE ×2 (01:23→03:43)
[2021-03-24 01:35] LABS: Hematocrit 41.1 % (37.5-50.1); Hemoglobin 13.3 g/dL (12.9-16.9); Immature Granulocytes % 0.8 % (0-4); Lymphocytes % 2.6 %; Mean Corpuscular HGB Conc 32.4 g/dL (31.6-35.5); Mean Corpuscular Hemoglobin 31.1 pg (28.0-33.3); Mean Platelet Volume 10.8 fL (9.4-12.4); Monocytes % 7.9 %; Platelet Count 218 K/mcL (140-400); Red Blood Count 4.28 M/mcL (4.19-5.50); Red Cell Distribution Width 18.4 % (11.5-14.5); Segmented Neutrophils % 88.6 %
[2021-03-24 01:36] LABS: Basophils % 0.1 %; Lymphocytes # 0.5 K/mcL (0.6-4.6); Monocytes # 1.5 K/mcL (0.0-1.3); Neutrophils # 16.8 K/mcL (1.6-8.9); Nucleated Red Blood Cells 0.1 /100 WBC (0)
[2021-03-24 01:41] LABS: Alanine Aminotransferase 33 Units/L (7-52); Albumin 2.9 g/dL (3.5-5.7); Albumin/Globulin Ratio 0.8 (1.1-2.2); Alkaline Phosphatase 128 Units/L (34-104); Aspartate Amino Transferase 37 Units/L (13-39); BUN/Creatinine Ratio 21 (6-26); Bilirubin,Direct 0.7 mg/dL (0.0-0.2); Bilirubin,Indirect 1.1 mg/dL (0.0-1.0); Bilirubin,Total 1.8 mg/dL (0.3-1.0); Blood Urea Nitrogen 17 mg/dL (6-20); Calcium 8.8 mg/dL (8.6-10.3); Carbon Dioxide 23 mEq/L (23-29); Chloride 105 mEq/L (98-107); Globulin 3.5 g/dL (2.4-3.5); Glucose 134 mg/dL (70-105); Lipase 9 Units/L (11-82); Osmolality,Calculated 290 (280-300); Potassium 4.4 mEq/L (3.5-5.1); Sodium 138 mEq/L (136-145); Total Protein 6.4 g/dL (6.4-8.9); eGFR For African Americans > 60 (> 60); eGFR For Non-African Americans > 60 (> 60)
[2021-03-24 02:09] LABS: Troponin I 0.12 ng/mL (< 0.04)
[2021-03-24] MEDS ORDERED: Piperacillin/Tazobactam 3.375 GM in 0.9 % Sodium Chloride Mini Bag 100 ML IVPB ONE (02:30)
[2021-03-24] MEDS ORDERED: Vancomycin 1,500 MG/265 ML IV.SOLN IVPB ONE (03:00)
[2021-03-24] MEDS: DilTIAZem 50 MG/50 ML IV.SOLN IVC SCH ×2 (03:58→08:14)
[2021-03-24 04:52] LABS: Bacteria,Urine Few per hpf (None-Few); Bilirubin,Urine Negative (Negative); Blood,Urine Large (Negative); Budding Yeast,Urine Few per hpf (None Seen); Clarity,Urine Clear (Clear); Color,Urine Light-Orange (Yellow); Glucose,Urine (UA) Normal (Normal); Ketones,Urine Negative (Negative); Leukocyte Esterase,Urine Negative (Negative); Mucus,Urine Few per lpf (None-Few); Nitrite,Urine Negative (Negative); PH,Urine 6.5 pH Units (5.0-8.0); Protein,Urine 70 mg/dL (Neg-Trace); RBC,Urine 50-100 per hpf (0-3); Specific Gravity,Urine > 1.030 (1.010-1.025); Urobilinogen,Urine Normal (Normal)
[2021-03-24 05:26] LABS: Adenovirus Not Detected (Not Detect); Coronavirus 229E Not Detected (Not Detect); Coronavirus HKU1 Not Detected (Not Detect); Coronavirus NL63 Not Detected (Not Detect); Coronavirus OC43 Not Detected (Not Detect); Human Metapneumovirus Not Detected (Not Detect); Human Rhinovirus/Enterovirus Not Detected (Not Detect); Influenza A Subtype 2009 H1 Not Detected (Not Detect); SARS-CoV-2 Not Detected (Not Detect)
[2021-03-24 05:27] LABS: Bordetella Pertussis Not Detected (Not Detect); Chlamydophila pneumoniae Not Detected (Not Detect); Influenza B Not Detected (Not Detect); Mycoplasma pneumoniae Not Detected (Not Detect); Parainfluenza Virus 1 Not Detected (Not Detect); Parainfluenza Virus 2 Not Detected (Not Detect); Parainfluenza Virus 3 Not Detected (Not Detect); Parainfluenza Virus 4 Not Detected (Not Detect); Respiratory Syncytial Virus Not Detected (Not Detect)
[2021-03-24] MEDS ORDERED: Ondansetron 4 MG/2 ML VIAL IVP PRN (07:46)
[2021-03-24] MEDS ORDERED: Naloxone 0.4 MG/ML INJ IVP PRN (07:46)
[2021-03-24] MEDS ORDERED: 0.9 % Sodium Chloride 1,000 ML IVC SCH (08:00)
[2021-03-24] MEDS: Acetaminophen 325 MG TABLET PO PRN ×3 (08:25→22:35)
[2021-03-24] MEDS: Azithromycin 500 MG in 0.9 % Sodium Chloride 250 ML IVPB SCH (08:25)
[2021-03-24] MEDS ORDERED: NON-FORMULARY MEDICATION 1 EACH EACH (Pantoprazole Sodium [Protonix] 40 MG Tablet.Dr) PO SCH (09:00)
[2021-03-24] MEDS ORDERED: 0.9 % Sodium Chloride 1,000 ML ONE (09:58)
[2021-03-24] MEDS: *HR* Amiodarone 200 MG TABLET PO SCH (10:18)
[2021-03-24] MEDS: Cyanocobalamin (B-12) 1,000 MCG TABLET PO SCH (10:19)
[2021-03-24] MEDS: Pantoprazole 40 MG VIAL IVP SCH (10:20)
[2021-03-24 12:32] LABS: ABG Base Excess 2 mEq/L (-2 to 3); ABG HCO3 26 mEq/L (21-27); ABG Oxygen Saturation 88 % (95-98); ABG PCO2 39 mmHg (35-45); ABG PH 7.43 pH Units (7.32-7.45); ABG PO2 53 mmHg (85-104); ABG TCO2 27 mEq/L (20-26)
[2021-03-24] MEDS: Piperacillin/Tazobactam 3.375 GM in 0.9 % Sodium Chloride Mini Bag 100 ML IVPB SCH ×2 (12:36→18:34)
[2021-03-24] MEDS: Metoprolol XL (24 HR) Succ 25 MG TAB.ER.24H PO SCH (13:50)
[2021-03-24] MEDS: Levalbuterol Neb 0.63 MG/3 ML IH SCH ×2 (15:36→21:27)
[2021-03-24] MEDS: Vancomycin 1,250 MG/262.5 ML IV.SOLN IVPB SCH (17:21)
[2021-03-24] MEDS: Apixaban 5 MG TABLET PO SCH (19:53)
[2021-03-24] MEDS ORDERED: *HR* Metoprolol 5 MG/5 ML VIAL IVP ONE (23:52)
[2021-03-25 01:14] LABS: Basophils % 0.1 %; Hematocrit 40.1 % (37.5-50.1); Hemoglobin 13.2 g/dL (12.9-16.9); Lymphocytes # 0.7 K/mcL (0.6-4.6); Lymphocytes % 3.6 %; Mean Corpuscular HGB Conc 32.9 g/dL (31.6-35.5); Mean Corpuscular Hemoglobin 32.2 pg (28.0-33.3); Mean Corpuscular Volume 97.8 fL (83.0-100.0); Mean Platelet Volume 11.3 fL (9.4-12.4); Monocytes # 0.7 K/mcL (0.0-1.3); Neutrophils # 17.1 K/mcL (1.6-8.9); Nucleated Red Blood Cells 0.4 /100 WBC (0); Platelet Count 242 K/mcL (140-400); Red Cell Distribution Width 18.7 % (11.5-14.5); Segmented Neutrophils % 91.3 %; White Blood Count 18.7 K/mcL (4.3-11.1)
[2021-03-25 01:28] LABS: BUN/Creatinine Ratio 24 (6-26); Blood Urea Nitrogen 21 mg/dL (6-20); Calcium 8.3 mg/dL (8.6-10.3); Carbon Dioxide 23 mEq/L (23-29); Chloride 108 mEq/L (98-107); Glucose 138 mg/dL (70-105); Magnesium 1.9 mg/dL (1.6-2.6); Osmolality,Calculated 291 (280-300); Phosphorous 3.7 mg/dL (2.7-4.5); Potassium 4.7 mEq/L (3.5-5.1); Sodium 138 mEq/L (136-145); eGFR For African Americans > 60 (> 60); eGFR For Non-African Americans > 60 (> 60)
[2021-03-25] MEDS: Piperacillin/Tazobactam 3.375 GM in 0.9 % Sodium Chloride Mini Bag 100 ML IVPB SCH ×3 (03:13→18:32)
[2021-03-25] MEDS: Levalbuterol Neb 0.63 MG/3 ML IH SCH ×4 (03:45→22:00)
[2021-03-25] MEDS: Vancomycin 1,250 MG/262.5 ML IV.SOLN IVPB SCH (04:40)
[2021-03-25] MEDS: Acetaminophen 325 MG TABLET PO PRN (07:28)
[2021-03-25] MEDS: Pantoprazole 40 MG VIAL IVP SCH (08:16)
[2021-03-25] MEDS: *HR* Amiodarone 200 MG TABLET PO SCH (08:16)
[2021-03-25] MEDS: Cyanocobalamin (B-12) 1,000 MCG TABLET PO SCH (08:16)
[2021-03-25] MEDS: Azithromycin 500 MG in 0.9 % Sodium Chloride 250 ML IVPB SCH (08:16)
[2021-03-25] MEDS: Metoprolol XL (24 HR) Succ 25 MG TAB.ER.24H PO SCH (08:16)
[2021-03-25] MEDS: Apixaban 5 MG TABLET PO SCH (08:16)
[2021-03-25] MEDS ORDERED: 0.9 % Sodium Chloride 1,000 ML ONE (09:46)
[2021-03-25] MEDS ORDERED: Isovue-370 500 ML BOTTLE IVP ONE (12:06)
[2021-03-25] MEDS ORDERED: Micafungin 100 MG in 0.9 % Sodium Chloride Mini Bag 100 ML IVPB SCH (12:15)
[2021-03-25] MEDS ORDERED: Norepinephrine 4 MG/254 ML IV.SOLN IVC SCH ×2 (12:15→19:34)
[2021-03-25] MEDS ORDERED: Isovue-370 500 ML BOTTLE PO ONE (12:31)
[2021-03-25] MEDS ORDERED: Albumin 25% 25gram/100mL 25 GM/100 ML IV.SOLN IVPB ONE (13:18)
[2021-03-25] MEDS ORDERED: *HR* HYDROmorphone (PF) 1 MG/ML SYRINGE IVP PRN ×2 (14:30→19:34)
[2021-03-25] MEDS ORDERED: Perflutren Lipid Microsphere 1.3 ML in 0.9 % Sodium Chloride 8.7 ML IVP PRN (15:11)
[2021-03-25] MEDS ORDERED: Vancomycin 1,500 MG/265 ML IV.SOLN IVPB SCH (17:00)
[2021-03-25] MEDS ORDERED: Doxycycline 100 MG in 0.9 % Sodium Chloride Mini Bag 100 ML IVPB SCH (18:00)
[2021-03-25] MEDS ORDERED: EPINEPHrine 1 MG/ML VIAL ONE (18:49)
[2021-03-25] MEDS ORDERED: *HR* Etomidate 40 MG/20 ML VIAL IVP ONE (18:51)
[2021-03-25] MEDS ORDERED: *HR* Propofol 200 MG/20 ML VIAL IVP ONE (18:51)
[2021-03-25] MEDS ORDERED: Lidocaine -MPF 2% 2 ML VIAL ONE ×2 (18:54→19:22)
[2021-03-25] MEDS ORDERED: *HR* Rocuronium Bromide 50 MG/5 ML VIAL ONE ×2 (18:54→20:46)
[2021-03-25] MEDS ORDERED: *HR* Vasopressin 20 UNIT/ML VIAL ONE (18:55)
[2021-03-25] MEDS ORDERED: Albumin Human 5% 25.0 GM/500 ML IV.SOLN ONE (18:55)
[2021-03-25] MEDS ORDERED: *HR* Norepinephrine 4 MG/4 ML VIAL IVC ONE (18:55)
[2021-03-25] MEDS ORDERED: *HR* Phenylephrine 10 MG/ML VIAL ONE (18:56)
[2021-03-25] MEDS ORDERED: Lidocaine HCL 4 ML Topical Solution (Laryng-O-Jet Kit Sterile Pak) TP ONE (19:12)
[2021-03-25] MEDS ORDERED: EPHEDrine 50 MG/ML VIAL ONE (19:16)
[2021-03-25] MEDS ORDERED: *HR* FentaNYL (PF) 100 MCG/2 ML VIAL ONE (19:18)
[2021-03-25] MEDS ORDERED: *HR* Midazolam HCl 2 MG/2 ML VIAL ONE (19:19)
[2021-03-25] MEDS ORDERED: Heparin 1,000 UNITS/500 mL 500 ML ONE (19:20)
[2021-03-25] MEDS ORDERED: Ropivacaine/PF 0.5% 30 ML VIAL ONE ×2 (19:28→19:29)
[2021-03-25] MEDS ORDERED: Naloxone 0.4 MG/ML INJ IVP PRN ×2 (19:34→21:36)
[2021-03-25] MEDS ORDERED: Ondansetron 4 MG/2 ML VIAL IVP PRN ×2 (19:34→21:36)
[2021-03-25] MEDS ORDERED: Acetaminophen 325 MG TABLET PO PRN ×2 (19:34→21:36)
[2021-03-25] MEDS ORDERED: Apixaban 5 MG TABLET PO SCH (21:00)
[2021-03-25] MEDS ORDERED: Neostigmine Methylsulfate 3 MG/3 ML SYRINGE ONE (21:17)
[2021-03-25] MEDS ORDERED: FentaNYL (PF) 1,000 MCG/100 ML IV.SOLN IVC SCH (21:45)
[2021-03-25] MEDS ORDERED: Levalbuterol Neb 0.63 MG/3 ML IH SCH (22:00)
[2021-03-25] MEDS: FentaNYL (PF) 1,000 MCG/100 ML IV.SOLN IVC SCH (22:10)
[2021-03-25] MEDS: Norepinephrine 4 MG/254 ML IV.SOLN IVC SCH (22:20)
[2021-03-25] MEDS: Phenylephrine 10 MG in 0.9 % Sodium Chloride 250 ML IVC SCH (23:41)
[2021-03-25] MEDS: Artificial Tears SOLN 15 ML BOTTLE BOTH EYES SCH (23:45)
[2021-03-25] MEDS: Chlorhexidine Rinse 15 ML MOUTHWASH MM SCH (23:45)
[2021-03-25] MEDS ORDERED: Artificial Tears SOLN 15 ML BOTTLE BOTH EYES PRN (23:51)
[2021-03-26] MEDS ORDERED: Piperacillin/Tazobactam 3.375 GM in 0.9 % Sodium Chloride Mini Bag 100 ML IVPB SCH (03:00)
[2021-03-26] MEDS: Piperacillin/Tazobactam 3.375 GM in 0.9 % Sodium Chloride Mini Bag 100 ML IVPB SCH ×3 (03:14→18:38)
[2021-03-26] MEDS: Artificial Tears SOLN 15 ML BOTTLE BOTH EYES SCH ×6 (03:24→23:13)
[2021-03-26 03:27] LABS: Basophils % 0.2 %; Hematocrit 39.6 % (37.5-50.1); Hemoglobin 12.6 g/dL (12.9-16.9); Immature Granulocytes % 1.1 % (0-4); Lymphocytes # 0.3 K/mcL (0.6-4.6); Lymphocytes % 1.9 %; Mean Corpuscular HGB Conc 31.8 g/dL (31.6-35.5); Mean Corpuscular Hemoglobin 31.7 pg (28.0-33.3); Mean Corpuscular Volume 99.7 fL (83.0-100.0); Monocytes # 0.3 K/mcL (0.0-1.3); Monocytes % 1.9 %; Neutrophils # 16.9 K/mcL (1.6-8.9); Nucleated Red Blood Cells 3.5 /100 WBC (0); Platelet Count 288 K/mcL (140-400); Red Blood Count 3.97 M/mcL (4.19-5.50); Segmented Neutrophils % 94.9 %; White Blood Count 17.8 K/mcL (4.3-11.1)
[2021-03-26] MEDS: Levalbuterol Neb 0.63 MG/3 ML IH SCH ×4 (03:34→21:47)
[2021-03-26 03:37] LABS: INR 2.3; Prothrombin Time 25.8 Seconds (9.4-12.1)
[2021-03-26 03:43] LABS: Alanine Aminotransferase 39 Units/L (7-52); Albumin 2.6 g/dL (3.5-5.7); Albumin/Globulin Ratio 0.9 (1.1-2.2); Alkaline Phosphatase 195 Units/L (34-104); Aspartate Amino Transferase 45 Units/L (13-39); BUN/Creatinine Ratio 28 (6-26); Bilirubin,Total 1.3 mg/dL (0.3-1.0); Blood Urea Nitrogen 34 mg/dL (6-20); Calcium 8.1 mg/dL (8.6-10.3); Carbon Dioxide 24 mEq/L (23-29); Chloride 107 mEq/L (98-107); Globulin 2.8 g/dL (2.4-3.5); Glucose 114 mg/dL (70-105); Osmolality,Calculated 294 (280-300); Potassium 5.5 mEq/L (3.5-5.1); Sodium 138 mEq/L (136-145); Total Protein 5.4 g/dL (6.4-8.9); eGFR For African Americans > 60 (> 60); eGFR For Non-African Americans > 60 (> 60)
[2021-03-26] MEDS: Phenylephrine 10 MG in 0.9 % Sodium Chloride 250 ML IVC SCH ×3 (03:55→11:42)
[2021-03-26 04:30] LABS: ABG Base Excess -3 mEq/L (-2 to 3); ABG HCO3 23 mEq/L (21-27); ABG Oxygen Saturation 99 % (95-98); ABG PCO2 43 mmHg (35-45); ABG PH 7.33 pH Units (7.32-7.45); ABG PO2 143 mmHg (85-104); ABG TCO2 24 mEq/L (20-26); Blood Gas Modality AF; Blood Gas VT 500 cc
[2021-03-26] MEDS: Doxycycline 100 MG in 0.9 % Sodium Chloride Mini Bag 100 ML IVPB SCH ×2 (05:19→16:43)
[2021-03-26] MEDS ORDERED: Doxycycline 100 MG in 0.9 % Sodium Chloride Mini Bag 100 ML IVPB SCH (06:00)
[2021-03-26] MEDS: FentaNYL (PF) 1,000 MCG/100 ML IV.SOLN IVC SCH ×2 (06:49→15:36)
[2021-03-26] MEDS: Metoprolol XL (24 HR) Succ 25 MG TAB.ER.24H PO SCH (07:57)
[2021-03-26] MEDS ORDERED: Azithromycin 500 MG in 0.9 % Sodium Chloride 250 ML IVPB SCH (08:00)
[2021-03-26] MEDS ORDERED: *HR* Dextrose 50 % in Water (Vial) 50 ML VIAL IVP ONE (08:04)
[2021-03-26] MEDS ORDERED: Insulin Human Regular 10 UNIT in 0.9 % Sodium Chloride 10 ML IV ONE (08:04)
[2021-03-26] MEDS: Chlorhexidine Rinse 15 ML MOUTHWASH MM SCH ×2 (08:09→19:57)
[2021-03-26] MEDS: Cyanocobalamin (B-12) 1,000 MCG TABLET PO SCH (08:10)
[2021-03-26] MEDS: *HR* Amiodarone 200 MG TABLET PO SCH (08:10)
[2021-03-26] MEDS: Micafungin 100 MG in 0.9 % Sodium Chloride Mini Bag 100 ML IVPB SCH (08:11)
[2021-03-26] MEDS ORDERED: Albumin 25% 25gram/100mL 25 GM/100 ML IV.SOLN IVPB ONE (08:57)
[2021-03-26] MEDS ORDERED: Furosemide 40 MG/4 ML VIAL IVP ONE (08:58)
[2021-03-26] MEDS ORDERED: Cyanocobalamin (B-12) 1,000 MCG TABLET PO SCH (09:00)
[2021-03-26] MEDS ORDERED: Micafungin 100 MG in 0.9 % Sodium Chloride Mini Bag 100 ML IVPB SCH (09:00)
[2021-03-26] MEDS ORDERED: Apixaban 5 MG TABLET PO SCH (09:00)
[2021-03-26] MEDS ORDERED: Metoprolol XL (24 HR) Succ 25 MG TAB.ER.24H PO SCH (09:00)
[2021-03-26] MEDS ORDERED: Pantoprazole 40 MG VIAL IVP SCH ×2 (09:00)
[2021-03-26] MEDS ORDERED: *HR* Amiodarone 200 MG TABLET PO SCH (09:00)
[2021-03-26] MEDS ORDERED: D10% in Water 500 ML IVC PRN (11:05)
[2021-03-26] MEDS ORDERED: D5% in Water 1,000 ML IVC PRN (15:59)
[2021-03-26] MEDS ORDERED: *HR* Dextrose 50 % in Water (Vial) 50 ML VIAL IVP PRN (15:59)
[2021-03-26] MEDS ORDERED: Dextrose Gel 15 GM/37.5 ML TUBE PO PRN ×2 (15:59)
[2021-03-26] MEDS: Insulin LISPRO 300 UNITS/3 ML VIAL SUBQ SCH ×3 (16:42→23:14)
[2021-03-26] MEDS ORDERED: Clinimix 5%-20% SOLUTION 2,000 ML with MVI, adult with vitamin K 10 ML, Sodium Phosph... IVC SCH (17:00)
[2021-03-26] MEDS: Apixaban 5 MG TABLET PO SCH (20:00)
[2021-03-27] MEDS: FentaNYL (PF) 1,000 MCG/100 ML IV.SOLN IVC SCH (02:55)
[2021-03-27] MEDS: Artificial Tears SOLN 15 ML BOTTLE BOTH EYES SCH ×6 (03:18→23:13)
[2021-03-27] MEDS: Insulin LISPRO 300 UNITS/3 ML VIAL SUBQ SCH ×6 (03:19→23:13)
[2021-03-27] MEDS: Piperacillin/Tazobactam 3.375 GM in 0.9 % Sodium Chloride Mini Bag 100 ML IVPB SCH ×3 (03:19→18:06)
[2021-03-27] MEDS: Levalbuterol Neb 0.63 MG/3 ML IH SCH ×4 (04:04→22:17)
[2021-03-27 04:11] LABS: Basophils % 0.2 %; Hematocrit 33.4 % (37.5-50.1); Immature Granulocytes % 0.9 % (0-4); Lymphocytes # 0.3 K/mcL (0.6-4.6); Lymphocytes % 1.5 %; Mean Corpuscular HGB Conc 31.4 g/dL (31.6-35.5); Mean Corpuscular Hemoglobin 31.1 pg (28.0-33.3); Mean Corpuscular Volume 98.8 fL (83.0-100.0); Mean Platelet Volume 11.1 fL (9.4-12.4); Monocytes # 0.5 K/mcL (0.0-1.3); Monocytes % 2.9 %; Neutrophils # 17.5 K/mcL (1.6-8.9); Nucleated Red Blood Cells 2.1 /100 WBC (0); Platelet Count 222 K/mcL (140-400); Red Blood Count 3.38 M/mcL (4.19-5.50); Red Cell Distribution Width 17.8 % (11.5-14.5); Segmented Neutrophils % 94.5 %; White Blood Count 18.5 K/mcL (4.3-11.1)
[2021-03-27 04:12] LABS: Hemoglobin 10.5 g/dL (12.9-16.9)
[2021-03-27 04:19] LABS: ABG Base Excess 3 mEq/L (-2 to 3); ABG HCO3 29 mEq/L (21-27); ABG Oxygen Saturation 93 % (95-98); ABG PCO2 48 mmHg (35-45); ABG PH 7.39 pH Units (7.32-7.45); ABG PO2 67 mmHg (85-104); ABG TCO2 31 mEq/L (20-26); Blood Gas Modality ASSIST CONTROL; Blood Gas VT 500 cc
[2021-03-27] MEDS: Doxycycline 100 MG in 0.9 % Sodium Chloride Mini Bag 100 ML IVPB SCH ×2 (05:20→16:45)
[2021-03-27 06:52] LABS: Alanine Aminotransferase 52 Units/L (7-52); Albumin 2.5 g/dL (3.5-5.7); Alkaline Phosphatase 131 Units/L (34-104); Aspartate Amino Transferase 48 Units/L (13-39); BUN/Creatinine Ratio 33 (6-26); Bilirubin,Total 0.7 mg/dL (0.3-1.0); Blood Urea Nitrogen 29 mg/dL (6-20); Calcium 7.9 mg/dL (8.6-10.3); Carbon Dioxide 31 mEq/L (23-29); Chloride 109 mEq/L (98-107); Globulin 2.4 g/dL (2.4-3.5); Glucose 243 mg/dL (70-105); Magnesium 2.1 mg/dL (1.6-2.6); Osmolality,Calculated 312 (280-300); Phosphorous 2.4 mg/dL (2.7-4.5); Potassium 3.6 mEq/L (3.5-5.1); Sodium 144 mEq/L (136-145); Total Protein 4.9 g/dL (6.4-8.9); Triglycerides 161 mg/dL (< 150); eGFR For African Americans > 60 (> 60); eGFR For Non-African Americans > 60 (> 60)
[2021-03-27] MEDS: Norepinephrine 4 MG/254 ML IV.SOLN IVC SCH ×2 (07:24→20:45)
[2021-03-27] MEDS: Cyanocobalamin (B-12) 1,000 MCG TABLET PO SCH (07:50)
[2021-03-27] MEDS: *HR* Amiodarone 200 MG TABLET PO SCH (07:50)
[2021-03-27] MEDS: Chlorhexidine Rinse 15 ML MOUTHWASH MM SCH ×2 (07:50→20:31)
[2021-03-27] MEDS: Micafungin 100 MG in 0.9 % Sodium Chloride Mini Bag 100 ML IVPB SCH (07:51)
[2021-03-27] MEDS: Apixaban 5 MG TABLET PO SCH ×2 (07:51→20:31)
[2021-03-27] MEDS: Metoprolol XL (24 HR) Succ 25 MG TAB.ER.24H PO SCH (07:51)
[2021-03-27] MEDS ORDERED: *HR* Metoprolol 5 MG/5 ML VIAL IVP ONE (09:26)
[2021-03-27] MEDS: Pantoprazole 40 MG VIAL IVP SCH ×2 (09:29→20:31)
[2021-03-27] MEDS: *HR* Metoprolol 5 MG/5 ML VIAL IVP SCH ×3 (09:39→23:12)
[2021-03-27] MEDS ORDERED: Albumin 25% 25gram/100mL 25 GM/100 ML IV.SOLN IVPB ONE (09:44)
[2021-03-27] MEDS ORDERED: Furosemide 40 MG in 0.9 % Sodium Chloride 50 ML IV ONE (09:50)
[2021-03-27] MEDS ORDERED: Furosemide 40 MG/4 ML VIAL IVP ONE (10:15)
[2021-03-27] MEDS ORDERED: Calcium Gluconate 1gm/50mL 1 GM/50 ML BAG IVPB PRN (12:19)
[2021-03-27] MEDS ORDERED: Potassium Phosphate 44 MEQ in 0.9 % Sodium Chloride 250 ML IVPB PRN (12:19)
[2021-03-27] MEDS: Potassium Chloride 40 MEQ/200 ML BAG IVPB PRN ×2 (13:06→14:04)
[2021-03-27 13:09] LABS: VBG Ionized Calcium 1.15 mmol/L (1.15-1.35)
[2021-03-27] MEDS ORDERED: Clinimix E 5%-15% SOLUTION 2,000 ML with MVI, adult with vitamin K 10 ML IVC SCH (17:00)
[2021-03-28] MEDS: Piperacillin/Tazobactam 3.375 GM in 0.9 % Sodium Chloride Mini Bag 100 ML IVPB SCH ×3 (02:05→18:10)
[2021-03-28] MEDS: Artificial Tears SOLN 15 ML BOTTLE BOTH EYES SCH (04:24)
[2021-03-28] MEDS: Insulin LISPRO 300 UNITS/3 ML VIAL SUBQ SCH ×5 (04:25→20:28)
[2021-03-28] MEDS: Levalbuterol Neb 0.63 MG/3 ML IH SCH ×4 (04:34→22:40)
[2021-03-28 04:41] LABS: Basophils % 0.1 %; Hematocrit 35.6 % (37.5-50.1); Hemoglobin 11.3 g/dL (12.9-16.9); Immature Granulocytes % 1.6 % (0-4); Lymphocytes # 0.5 K/mcL (0.6-4.6); Lymphocytes % 2.2 %; Mean Corpuscular HGB Conc 31.7 g/dL (31.6-35.5); Mean Corpuscular Hemoglobin 31.7 pg (28.0-33.3); Mean Platelet Volume 10.9 fL (9.4-12.4); Monocytes # 0.9 K/mcL (0.0-1.3); Neutrophils # 21.4 K/mcL (1.6-8.9); Nucleated Red Blood Cells 1.7 /100 WBC (0); Platelet Count 267 K/mcL (140-400); Red Blood Count 3.56 M/mcL (4.19-5.50); Red Cell Distribution Width 18.7 % (11.5-14.5); Segmented Neutrophils % 92.1 %; White Blood Count 23.2 K/mcL (4.3-11.1)
[2021-03-28 04:55] LABS: BUN/Creatinine Ratio 41 (6-26); Blood Urea Nitrogen 32 mg/dL (6-20); Calcium 8.5 mg/dL (8.6-10.3); Carbon Dioxide 31 mEq/L (23-29); Chloride 108 mEq/L (98-107); Glucose 162 mg/dL (70-105); Osmolality,Calculated 308 (280-300); Phosphorous 2.8 mg/dL (2.7-4.5); Potassium 4.4 mEq/L (3.5-5.1); Sodium 144 mEq/L (136-145); eGFR For African Americans > 60 (> 60); eGFR For Non-African Americans > 60 (> 60)
[2021-03-28] MEDS: Doxycycline 100 MG in 0.9 % Sodium Chloride Mini Bag 100 ML IVPB SCH ×2 (05:33→17:06)
[2021-03-28] MEDS: *HR* Metoprolol 5 MG/5 ML VIAL IVP SCH ×2 (05:33→12:48)
[2021-03-28] MEDS: Pantoprazole 40 MG VIAL IVP SCH ×2 (08:52→20:28)
[2021-03-28] MEDS: Micafungin 100 MG in 0.9 % Sodium Chloride Mini Bag 100 ML IVPB SCH (08:53)
[2021-03-28] MEDS: Apixaban 5 MG TABLET PO SCH ×2 (08:54→20:27)
[2021-03-28] MEDS: *HR* Amiodarone 200 MG TABLET PO SCH (08:54)
[2021-03-28] MEDS: Cyanocobalamin (B-12) 1,000 MCG TABLET PO SCH (08:54)
[2021-03-28] MEDS ORDERED: Metoprolol XL (24 HR) Succ 25 MG TAB.ER.24H PO SCH (09:00)
[2021-03-28] MEDS: Isosorbide MONOnitrate (24 HR) 30 MG TAB.ER.24H PO SCH ×2 (09:10→20:27)
[2021-03-28] MEDS ORDERED: Morphine Sulfate 2 MG/ML SYRINGE IVP PRN (09:26)
[2021-03-28] MEDS: Sacubitril/Valsartan 24/26 MG 1 TABLET PO SCH ×2 (14:00→20:31)
[2021-03-28 14:16] LABS: BUN/Creatinine Ratio 40 (6-26); Blood Urea Nitrogen 34 mg/dL (6-20); Calcium 8.4 mg/dL (8.6-10.3); Carbon Dioxide 31 mEq/L (23-29); Chloride 108 mEq/L (98-107); Glucose 176 mg/dL (70-105); Osmolality,Calculated 308 (280-300); Potassium 4.7 mEq/L (3.5-5.1); Sodium 143 mEq/L (136-145); eGFR For African Americans > 60 (> 60); eGFR For Non-African Americans > 60 (> 60)
[2021-03-28] MEDS ORDERED: Clinimix E 5%-15% SOLUTION 2,000 ML with MVI, adult with vitamin K 10 ML IVC SCH (17:00)
[2021-03-28] MEDS: Norepinephrine 4 MG/254 ML IV.SOLN IVC SCH (20:38)
[2021-03-29] MEDS: Insulin LISPRO 300 UNITS/3 ML VIAL SUBQ SCH ×7 (00:12→23:16)
[2021-03-29] MEDS: Piperacillin/Tazobactam 3.375 GM in 0.9 % Sodium Chloride Mini Bag 100 ML IVPB SCH ×3 (03:23→17:35)
[2021-03-29 03:46] LABS: Basophils # 0.1 K/mcL (0.0-0.2); Basophils % 0.5 %; Hemoglobin 11.8 g/dL (12.9-16.9); Immature Granulocytes % 4.8 % (0-4); Lymphocytes # 1.3 K/mcL (0.6-4.6); Lymphocytes % 6.1 %; Mean Corpuscular HGB Conc 31.1 g/dL (31.6-35.5); Mean Corpuscular Hemoglobin 31.1 pg (28.0-33.3); Mean Platelet Volume 11.1 fL (9.4-12.4); Monocytes # 0.9 K/mcL (0.0-1.3); Monocytes % 4.4 %; Neutrophils # 17.2 K/mcL (1.6-8.9); Nucleated Red Blood Cells 2.6 /100 WBC (0); Platelet Count 299 K/mcL (140-400); Red Cell Distribution Width 18.8 % (11.5-14.5); Segmented Neutrophils % 84.2 %; White Blood Count 20.5 K/mcL (4.3-11.1)
[2021-03-29 04:06] LABS: BUN/Creatinine Ratio 45 (6-26); Blood Urea Nitrogen 28 mg/dL (6-20); Calcium 8.5 mg/dL (8.6-10.3); Carbon Dioxide 31 mEq/L (23-29); Chloride 105 mEq/L (98-107); Glucose 175 mg/dL (70-105); Magnesium 1.8 mg/dL (1.6-2.6); Osmolality,Calculated 298 (280-300); Potassium 4.7 mEq/L (3.5-5.1); Sodium 139 mEq/L (136-145); eGFR For African Americans > 60 (> 60); eGFR For Non-African Americans > 60 (> 60)
[2021-03-29] MEDS ORDERED: Clinimix E 5%-15% SOLUTION 2,000 ML with MVI, adult with vitamin K 10 ML IVC SCH ×2 (04:27→17:00)
[2021-03-29] MEDS ORDERED: Acetaminophen 325 MG TABLET PO PRN (04:27)
[2021-03-29] MEDS ORDERED: D10% in Water 500 ML IVC PRN (04:27)
[2021-03-29] MEDS ORDERED: Artificial Tears SOLN 15 ML BOTTLE BOTH EYES PRN (04:27)
[2021-03-29] MEDS ORDERED: Calcium Gluconate 1gm/50mL 1 GM/50 ML BAG IVPB PRN (04:27)
[2021-03-29] MEDS ORDERED: D5% in Water 1,000 ML IVC PRN (04:27)
[2021-03-29] MEDS ORDERED: Morphine Sulfate 2 MG/ML SYRINGE IVP PRN (04:27)
[2021-03-29] MEDS ORDERED: Naloxone 0.4 MG/ML INJ IVP PRN (04:27)
[2021-03-29] MEDS ORDERED: *HR* Dextrose 50 % in Water (Vial) 50 ML VIAL IVP PRN (04:27)
[2021-03-29] MEDS ORDERED: Dextrose Gel 15 GM/37.5 ML TUBE PO PRN ×2 (04:27)
[2021-03-29] MEDS: Levalbuterol Neb 0.63 MG/3 ML IH SCH ×4 (04:38→22:15)
[2021-03-29] MEDS: Doxycycline 100 MG in 0.9 % Sodium Chloride Mini Bag 100 ML IVPB SCH ×2 (05:45→17:35)
[2021-03-29] MEDS: Cyanocobalamin (B-12) 1,000 MCG TABLET PO SCH (07:59)
[2021-03-29] MEDS: Isosorbide MONOnitrate (24 HR) 30 MG TAB.ER.24H PO SCH ×2 (07:59→21:38)
[2021-03-29] MEDS: Apixaban 5 MG TABLET PO SCH ×2 (07:59→21:38)
[2021-03-29] MEDS: Metoprolol XL (24 HR) Succ 25 MG TAB.ER.24H PO SCH (07:59)
[2021-03-29] MEDS: Sacubitril/Valsartan 24/26 MG 1 TABLET PO SCH ×2 (08:00→21:38)
[2021-03-29] MEDS: Micafungin 100 MG in 0.9 % Sodium Chloride Mini Bag 100 ML IVPB SCH (08:00)
[2021-03-29] MEDS: *HR* Amiodarone 200 MG TABLET PO SCH (08:00)
[2021-03-29 10:07] LABS: Mycoplasma pneumoniae IgG 0.39 U/L (<=0.09)
[2021-03-30] MEDS: Levalbuterol Neb 0.63 MG/3 ML IH SCH ×4 (04:15→22:29)
[2021-03-30] MEDS: Piperacillin/Tazobactam 3.375 GM in 0.9 % Sodium Chloride Mini Bag 100 ML IVPB SCH ×3 (04:57→21:38)
[2021-03-30] MEDS: Doxycycline 100 MG in 0.9 % Sodium Chloride Mini Bag 100 ML IVPB SCH ×2 (04:58→16:57)
[2021-03-30] MEDS: Insulin LISPRO 300 UNITS/3 ML VIAL SUBQ SCH ×5 (04:58→21:39)
[2021-03-30 04:59] LABS: Hematocrit 40.4 % (37.5-50.1); Hemoglobin 12.7 g/dL (12.9-16.9); Mean Corpuscular HGB Conc 31.4 g/dL (31.6-35.5); Mean Corpuscular Hemoglobin 31.7 pg (28.0-33.3); Mean Corpuscular Volume 100.7 fL (83.0-100.0); Mean Platelet Volume 11.1 fL (9.4-12.4); Nucleated Red Blood Cells 9.5 /100 WBC (0); Platelet Count 331 K/mcL (140-400); Red Blood Count 4.01 M/mcL (4.19-5.50); Red Cell Distribution Width 18.8 % (11.5-14.5)
[2021-03-30] MEDS ORDERED: *HR* Metoprolol 5 MG/5 ML VIAL IVP ONE (05:11)
[2021-03-30 05:19] LABS: BUN/Creatinine Ratio 39 (6-26); Blood Urea Nitrogen 22 mg/dL (6-20); Calcium 8.7 mg/dL (8.6-10.3); Carbon Dioxide 32 mEq/L (23-29); Chloride 104 mEq/L (98-107); Glucose 134 mg/dL (70-105); Magnesium 1.9 mg/dL (1.6-2.6); Osmolality,Calculated 293 (280-300); Phosphorous 3.3 mg/dL (2.7-4.5); Potassium 4.5 mEq/L (3.5-5.1); Sodium 139 mEq/L (136-145); eGFR For African Americans > 60 (> 60); eGFR For Non-African Americans > 60 (> 60)
[2021-03-30] MEDS: Metoprolol XL (24 HR) Succ 25 MG TAB.ER.24H PO SCH (05:29)
[2021-03-30 05:47] LABS: Anisocytosis 1+ (Not Present); Eosinophils # 0.4 K/mcL (0.0-0.6); Lymphocytes # 2.2 K/mcL (0.6-4.6); Monocytes # 1.3 K/mcL (0.0-1.3); Platelet Estimate Normal (Normal); Polychromasia 1+ (Not Present)
[2021-03-30] MEDS: Ondansetron 4 MG/2 ML VIAL IVP PRN (06:02)
[2021-03-30] MEDS: Cyanocobalamin (B-12) 1,000 MCG TABLET PO SCH (07:46)
[2021-03-30] MEDS: Isosorbide MONOnitrate (24 HR) 30 MG TAB.ER.24H PO SCH ×2 (07:46→21:42)
[2021-03-30] MEDS: *HR* Amiodarone 200 MG TABLET PO SCH (07:46)
[2021-03-30] MEDS: Apixaban 5 MG TABLET PO SCH ×2 (07:47→21:42)
[2021-03-30] MEDS: Sacubitril/Valsartan 24/26 MG 1 TABLET PO SCH ×2 (07:47→21:42)
[2021-03-30] MEDS: Micafungin 100 MG in 0.9 % Sodium Chloride Mini Bag 100 ML IVPB SCH (07:49)
[2021-03-30] MEDS ORDERED: Fluconazole 400 MG/200 ML 400 MG/200 ML BAG IVPB ONE (09:00)
[2021-03-30] MEDS ORDERED: Clinimix E 5%-15% SOLUTION 2,000 ML with MVI, adult with vitamin K 10 ML IVC SCH (17:00)
[2021-03-31] MEDS: Ondansetron 4 MG/2 ML VIAL IVP PRN ×2 (00:45→10:47)
[2021-03-31] MEDS: Insulin LISPRO 300 UNITS/3 ML VIAL SUBQ SCH ×6 (00:45→21:43)
[2021-03-31] MEDS ORDERED: *HR* LORazepam 2 MG/ML VIAL IVP ONE (03:28)
[2021-03-31] MEDS: Piperacillin/Tazobactam 3.375 GM in 0.9 % Sodium Chloride Mini Bag 100 ML IVPB SCH ×3 (03:33→21:43)
[2021-03-31] MEDS: Levalbuterol Neb 0.63 MG/3 ML IH SCH ×4 (03:38→22:39)
[2021-03-31 04:12] LABS: Hematocrit 39.8 % (37.5-50.1); Hemoglobin 12.6 g/dL (12.9-16.9); Mean Corpuscular HGB Conc 31.7 g/dL (31.6-35.5); Mean Corpuscular Hemoglobin 31.3 pg (28.0-33.3); Mean Platelet Volume 10.7 fL (9.4-12.4); Nucleated Red Blood Cells 12.4 /100 WBC (0); Platelet Count 309 K/mcL (140-400); Red Blood Count 4.02 M/mcL (4.19-5.50); Red Cell Distribution Width 18.9 % (11.5-14.5); White Blood Count 12.7 K/mcL (4.3-11.1)
[2021-03-31 04:35] LABS: BUN/Creatinine Ratio 42 (6-26); Blood Urea Nitrogen 23 mg/dL (6-20); Calcium 8.9 mg/dL (8.6-10.3); Carbon Dioxide 31 mEq/L (23-29); Chloride 105 mEq/L (98-107); Glucose 181 mg/dL (70-105); Magnesium 1.7 mg/dL (1.6-2.6); Osmolality,Calculated 296 (280-300); Phosphorous 3.8 mg/dL (2.7-4.5); Potassium 4.8 mEq/L (3.5-5.1); Sodium 139 mEq/L (136-145); eGFR For African Americans > 60 (> 60); eGFR For Non-African Americans > 60 (> 60)
[2021-03-31 05:05] LABS: Anisocytosis 1+ (Not Present); Eosinophils # 0.3 K/mcL (0.0-0.6); Lymphocytes # 1.3 K/mcL (0.6-4.6); Monocytes # 0.8 K/mcL (0.0-1.3); Neutrophils # 10.2 K/mcL (1.6-8.9); Platelet Estimate Normal (Normal)
[2021-03-31] MEDS: Doxycycline 100 MG in 0.9 % Sodium Chloride Mini Bag 100 ML IVPB SCH ×2 (06:23→17:49)
[2021-03-31] MEDS ORDERED: Fluconazole 200 MG/100 ML 200 MG/100 ML BAG IVPB SCH (09:00)
[2021-03-31] MEDS: Apixaban 5 MG TABLET PO SCH ×2 (10:42→21:44)
[2021-03-31] MEDS: Sacubitril/Valsartan 24/26 MG 1 TABLET PO SCH ×2 (10:42→21:44)
[2021-03-31] MEDS: Metoprolol XL (24 HR) Succ 25 MG TAB.ER.24H PO SCH (10:42)
[2021-03-31] MEDS: *HR* Amiodarone 200 MG TABLET PO SCH (10:43)
[2021-03-31] MEDS: Isosorbide MONOnitrate (24 HR) 30 MG TAB.ER.24H PO SCH ×2 (10:43→21:44)
[2021-03-31] MEDS: Cyanocobalamin (B-12) 1,000 MCG TABLET PO SCH (10:44)
[2021-03-31] MEDS: Micafungin 100 MG in 0.9 % Sodium Chloride Mini Bag 100 ML IVPB SCH (11:04)
[2021-04-01] MEDS: Insulin LISPRO 300 UNITS/3 ML VIAL SUBQ SCH (00:23)
[2021-04-01] MEDS: Piperacillin/Tazobactam 3.375 GM in 0.9 % Sodium Chloride Mini Bag 100 ML IVPB SCH (03:21)
[2021-04-01] MEDS: Ondansetron 4 MG/2 ML VIAL IVP PRN (03:21)
[2021-04-01] MEDS: Levalbuterol Neb 0.63 MG/3 ML IH SCH ×2 (03:40→10:28)
[2021-04-01 03:42] VITALS: O2SAT 97
[2021-04-01 03:55] LABS: Basophils % 0.2 %; Eosinophils # 0.1 K/mcL (0.0-0.6); Eosinophils % 0.4 %; Hematocrit 40.8 % (37.5-50.1); Hemoglobin 12.9 g/dL (12.9-16.9); Immature Granulocytes % 1.6 % (0-4); Lymphocytes % 7.1 %; Mean Corpuscular HGB Conc 31.6 g/dL (31.6-35.5); Mean Corpuscular Volume 98.1 fL (83.0-100.0); Mean Platelet Volume 11.2 fL (9.4-12.4); Monocytes # 1.2 K/mcL (0.0-1.3); Monocytes % 7.9 %; Neutrophils # 12.2 K/mcL (1.6-8.9); Nucleated Red Blood Cells 5.4 /100 WBC (0); Platelet Count 320 K/mcL (140-400); Red Blood Count 4.16 M/mcL (4.19-5.50); Red Cell Distribution Width 19.9 % (11.5-14.5); Segmented Neutrophils % 82.8 %; White Blood Count 14.7 K/mcL (4.3-11.1)
[2021-04-01 04:20] LABS: BUN/Creatinine Ratio 33 (6-26); Blood Urea Nitrogen 24 mg/dL (6-20); Calcium 9.2 mg/dL (8.6-10.3); Carbon Dioxide 30 mEq/L (23-29); Chloride 105 mEq/L (98-107); Glucose 103 mg/dL (70-105); Magnesium 1.8 mg/dL (1.6-2.6); Osmolality,Calculated 294 (280-300); Phosphorous 4.1 mg/dL (2.7-4.5); Potassium 5.2 mEq/L (3.5-5.1); Sodium 140 mEq/L (136-145); Troponin I 0.07 ng/mL (< 0.04); eGFR For African Americans > 60 (> 60); eGFR For Non-African Americans > 60 (> 60)
[2021-04-01] MEDS: Doxycycline 100 MG in 0.9 % Sodium Chloride Mini Bag 100 ML IVPB SCH (05:27)
[2021-04-01 07:01] VITALS: BP 115/81; PULSE 111; TEMP 98.3
[2021-04-01] MEDS ORDERED: Isovue-370 500 ML BOTTLE IVP ONE (08:06)
[2021-04-01] MEDS ORDERED: Isovue-370 500 ML BOTTLE PO ONE (08:22)
== END 2021-04-01 11:53 | disposition left against medical advice (07) | DRG 711 ==
LOC: 2NENU 00:39 → EMEROOARM 00:39 → 3ANU 00:39 → SUATTDRO 06:33 → 2NENU 06:50 → ICNU 03-25 11:04 → 2NNU 03-29 07:25 → 3ANU 03-30 19:27
PROVIDERS: ADMIT Internal Medicine; ATTEND Internal Medicine

== ENCOUNTER 2021-04-02 05:56 | Inpatient (IN) ==
[2021-04-02 07:03] LABS: Basophils % 0.1 %; Eosinophils % 0.1 %; Hematocrit 38.7 % (37.5-50.1); Hemoglobin 12.4 g/dL (12.9-16.9); Immature Granulocytes % 0.8 % (0-4); Lymphocytes # 0.7 K/mcL (0.6-4.6); Lymphocytes % 5.2 %; Mean Corpuscular Volume 96.8 fL (83.0-100.0); Mean Platelet Volume 11.4 fL (9.4-12.4); Monocytes # 1.1 K/mcL (0.0-1.3); Monocytes % 7.7 %; Neutrophils # 12.2 K/mcL (1.6-8.9); Nucleated Red Blood Cells 1.6 /100 WBC (0); Platelet Count 274 K/mcL (140-400); Red Cell Distribution Width 19.3 % (11.5-14.5); Segmented Neutrophils % 86.1 %; White Blood Count 14.2 K/mcL (4.3-11.1)
[2021-04-02 07:19] LABS: Alanine Aminotransferase 46 Units/L (7-52); Albumin 2.9 g/dL (3.5-5.7); Albumin/Globulin Ratio 1.1 (1.1-2.2); Alkaline Phosphatase 380 Units/L (34-104); Aspartate Amino Transferase 42 Units/L (13-39); BUN/Creatinine Ratio 29 (6-26); Bilirubin,Indirect 1.5 mg/dL (0.0-1.0); Bilirubin,Total 3.5 mg/dL (0.3-1.0); Blood Urea Nitrogen 28 mg/dL (6-20); Carbon Dioxide 27 mEq/L (23-29); Chloride 104 mEq/L (98-107); Globulin 2.6 g/dL (2.4-3.5); Glucose 117 mg/dL (70-105); Osmolality,Calculated 291 (280-300); Potassium 4.9 mEq/L (3.5-5.1); Sodium 137 mEq/L (136-145); Total Protein 5.5 g/dL (6.4-8.9); eGFR For African Americans > 60 (> 60); eGFR For Non-African Americans > 60 (> 60)
[2021-04-02 08:08] LABS: Bilirubin,Urine Negative (Negative); Blood,Urine Negative (Negative); Clarity,Urine Clear (Clear); Color,Urine Yellow (Yellow); Glucose,Urine (UA) Normal (Normal); Ketones,Urine Negative (Negative); Leukocyte Esterase,Urine Negative (Negative); Mucus,Urine Few per lpf (None-Few); Nitrite,Urine Negative (Negative); PH,Urine 6.5 pH Units (5.0-8.0); Protein,Urine 30 mg/dL (Neg-Trace); RBC,Urine 0-3 per hpf (0-3); Specific Gravity,Urine 1.014 (1.010-1.025); Squamous Epithelial Cell,Urine Few per hpf (None-Few); Urobilinogen,Urine Normal (Normal); WBC,Urine 0-3 per hpf (0-3)
[2021-04-02] MEDS ORDERED: Isovue-370 500 ML BOTTLE IVP ONE (08:12)
[2021-04-02] MEDS ORDERED: Ondansetron 4 MG/2 ML VIAL IVP ONE (08:13)
[2021-04-02] MEDS ORDERED: *HR* FentaNYL (PF) 100 MCG/2 ML VIAL IVP ONE (08:13)
[2021-04-02] MEDS ORDERED: 0.9 % Sodium Chloride 1,000 ML IVC ONE (08:14)
[2021-04-02] MEDS ORDERED: Isovue-370 500 ML BOTTLE PO ONE (09:25)
[2021-04-02] MEDS ORDERED: Ondansetron ODT 4 MG TAB.RAPDIS SL ONE (09:44)
[2021-04-02] MEDS ORDERED: Naloxone 0.4 MG/ML INJ IVP PRN (12:05)
[2021-04-02] MEDS ORDERED: Ondansetron 4 MG/2 ML VIAL IVP PRN (12:05)
[2021-04-02 12:12] LABS: INR 2.2; Prothrombin Time 24.5 Seconds (9.4-12.1)
[2021-04-02] MEDS ORDERED: *HR* Heparin 5,000 UNIT/ML VIAL IVP ONE (12:13)
[2021-04-02] MEDS ORDERED: *HR* Heparin 5,000 UNIT/ML VIAL IVP PRN ×2 (12:13)
[2021-04-02 12:15] LABS: Activated Partial Thrombo Time 29.8 Seconds (26.0-36.0)
[2021-04-02] MEDS ORDERED: Heparin 25,000UNIT/250ML 1/2NS 25,000 UNIT/250 ML IV.SOLN IVC SCH (12:15)
[2021-04-02 12:29] LABS: Heparin anti-factor XA UFH 0.32 IU/mL (0.30-0.70)
[2021-04-02] MEDS ORDERED: Piperacillin/Tazobactam 3.375 GM VIAL ONE (14:31)
[2021-04-02] MEDS: Piperacillin/Tazobactam 3.375 GM in 0.9 % Sodium Chloride Mini Bag 100 ML IVPB SCH ×2 (14:36→19:41)
[2021-04-02] MEDS: Heparin 25,000UNIT/250ML 1/2NS 25,000 UNIT/250 ML IV.SOLN IVC SCH (15:13)
[2021-04-02] MEDS: Ipratropium/Albuterol Neb 3 ML IH SCH ×3 (16:11→23:58)
[2021-04-02 17:00] LABS: Adenovirus Not Detected (Not Detect); Bordetella Pertussis Not Detected (Not Detect); Chlamydophila pneumoniae Not Detected (Not Detect); Coronavirus 229E Not Detected (Not Detect); Coronavirus HKU1 Not Detected (Not Detect); Coronavirus NL63 Not Detected (Not Detect); Coronavirus OC43 Not Detected (Not Detect); Human Metapneumovirus Not Detected (Not Detect); Human Rhinovirus/Enterovirus Not Detected (Not Detect); Influenza A Subtype 2009 H1 Not Detected (Not Detect); Influenza B Not Detected (Not Detect); Mycoplasma pneumoniae Not Detected (Not Detect); Parainfluenza Virus 1 Not Detected (Not Detect); Parainfluenza Virus 2 Not Detected (Not Detect); Parainfluenza Virus 3 Not Detected (Not Detect); Parainfluenza Virus 4 Not Detected (Not Detect); Respiratory Syncytial Virus Not Detected (Not Detect); SARS-CoV-2 Not Detected (Not Detect)
[2021-04-02] MEDS: *HR* OxyCODONE Immed Rel 5 MG TABLET PO PRN (18:07)
[2021-04-02] MEDS: Doxycycline 100 MG in 0.9 % Sodium Chloride Mini Bag 100 ML IVPB SCH (18:13)
[2021-04-03 02:38] LABS: Basophils % 0.1 %; Eosinophils # 0.1 K/mcL (0.0-0.6); Eosinophils % 0.5 %; Hemoglobin 12.2 g/dL (12.9-16.9); Lymphocytes # 0.9 K/mcL (0.6-4.6); Lymphocytes % 6.8 %; Mean Corpuscular HGB Conc 32.1 g/dL (31.6-35.5); Mean Corpuscular Hemoglobin 31.2 pg (28.0-33.3); Mean Corpuscular Volume 97.2 fL (83.0-100.0); Mean Platelet Volume 11.8 fL (9.4-12.4); Monocytes # 1.4 K/mcL (0.0-1.3); Monocytes % 10.2 %; Nucleated Red Blood Cells 1.8 /100 WBC (0); Platelet Count 253 K/mcL (140-400); Red Blood Count 3.91 M/mcL (4.19-5.50); Red Cell Distribution Width 19.8 % (11.5-14.5); Segmented Neutrophils % 81.4 %; White Blood Count 13.5 K/mcL (4.3-11.1)
[2021-04-03 02:57] LABS: Magnesium 1.6 mg/dL (1.6-2.6); Phosphorous 3.5 mg/dL (2.7-4.5)
[2021-04-03 03:01] LABS: % Iron Saturation 29 % (20-55); Alanine Aminotransferase 37 Units/L (7-52); Albumin 2.7 g/dL (3.5-5.7); Albumin/Globulin Ratio 1.1 (1.1-2.2); Alkaline Phosphatase 348 Units/L (34-104); Aspartate Amino Transferase 31 Units/L (13-39); BUN/Creatinine Ratio 28 (6-26); Bilirubin,Total 2.9 mg/dL (0.3-1.0); Blood Urea Nitrogen 23 mg/dL (6-20); Calcium 8.3 mg/dL (8.6-10.3); Carbon Dioxide 25 mEq/L (23-29); Chloride 104 mEq/L (98-107); Globulin 2.5 g/dL (2.4-3.5); Glucose 133 mg/dL (70-105); Iron 60 mcg/dL (65-175); Osmolality,Calculated 288 (280-300); Potassium 4.2 mEq/L (3.5-5.1); Sodium 136 mEq/L (136-145); Total Protein 5.2 g/dL (6.4-8.9); Transferrin 150 mg/dL (203-362); eGFR For African Americans > 60 (> 60); eGFR For Non-African Americans > 60 (> 60)
[2021-04-03 03:19] LABS: Ferritin 584 ng/mL (20-250)
[2021-04-03 03:24] LABS: Folate 9.5 ng/mL (3.0-16.0)
[2021-04-03] MEDS: Ipratropium/Albuterol Neb 3 ML IH SCH ×6 (03:28→23:44)
[2021-04-03 03:42] LABS: Vitamin B12 > 1500 pg/mL (250-1100)
[2021-04-03] MEDS ORDERED: Piperacillin/Tazobactam 3.375 GM VIAL ONE (05:11)
[2021-04-03] MEDS: Doxycycline 100 MG in 0.9 % Sodium Chloride Mini Bag 100 ML IVPB SCH ×2 (05:23→16:15)
[2021-04-03] MEDS: Piperacillin/Tazobactam 3.375 GM in 0.9 % Sodium Chloride Mini Bag 100 ML IVPB SCH ×3 (05:24→20:38)
[2021-04-03 10:39] LABS: Heparin anti-factor XA UFH 0.25 IU/mL (0.30-0.70)
[2021-04-03 10:59] LABS: Activated Partial Thrombo Time 38.5 Seconds (26.0-36.0)
[2021-04-03] MEDS: Heparin 25,000UNIT/250ML 1/2NS 25,000 UNIT/250 ML IV.SOLN IVC SCH (11:16)
[2021-04-03] MEDS ORDERED: Acetaminophen 325 MG TABLET PO PRN (12:33)
[2021-04-03] MEDS ORDERED: Melatonin 3 MG TABLET PO PRN (12:34)
[2021-04-03] MEDS: Sacubitril/Valsartan 24/26 MG 1 TABLET PO SCH ×2 (13:53→20:38)
[2021-04-03] MEDS: Metoprolol XL (24 HR) Succ 25 MG TAB.ER.24H PO SCH (13:53)
[2021-04-03] MEDS: *HR* Amiodarone 200 MG TABLET PO SCH (13:53)
[2021-04-03] MEDS ORDERED: Apixaban 2.5 MG TABLET PO ONE (17:37)
[2021-04-03] MEDS: Isosorbide MONOnitrate (24 HR) 30 MG TAB.ER.24H PO SCH (20:38)
[2021-04-03] MEDS: *HR* OxyCODONE Immed Rel 5 MG TABLET PO PRN (21:00)
[2021-04-03] MEDS ORDERED: Apixaban 5 MG TABLET PO SCH (22:00)
[2021-04-04] MEDS: Ipratropium/Albuterol Neb 3 ML IH SCH ×6 (04:29→23:54)
[2021-04-04] MEDS: Doxycycline 100 MG in 0.9 % Sodium Chloride Mini Bag 100 ML IVPB SCH ×2 (05:20→18:37)
[2021-04-04] MEDS: Piperacillin/Tazobactam 3.375 GM in 0.9 % Sodium Chloride Mini Bag 100 ML IVPB SCH ×3 (05:21→20:41)
[2021-04-04 06:24] LABS: Basophils % 0.1 %; Eosinophils # 0.1 K/mcL (0.0-0.6); Hematocrit 34.3 % (37.5-50.1); Hemoglobin 11.2 g/dL (12.9-16.9); Immature Granulocytes % 1.1 % (0-4); Lymphocytes # 0.6 K/mcL (0.6-4.6); Lymphocytes % 5.7 %; Mean Corpuscular HGB Conc 32.7 g/dL (31.6-35.5); Monocytes # 1.3 K/mcL (0.0-1.3); Neutrophils # 8.7 K/mcL (1.6-8.9); Nucleated Red Blood Cells 0.9 /100 WBC (0); Platelet Count 236 K/mcL (140-400); Red Cell Distribution Width 19.8 % (11.5-14.5); Segmented Neutrophils % 80.1 %; White Blood Count 10.9 K/mcL (4.3-11.1)
[2021-04-04 06:47] LABS: Alanine Aminotransferase 32 Units/L (7-52); Albumin 2.7 g/dL (3.5-5.7); Albumin/Globulin Ratio 1.1 (1.1-2.2); Alkaline Phosphatase 304 Units/L (34-104); Aspartate Amino Transferase 30 Units/L (13-39); BUN/Creatinine Ratio 24 (6-26); Bilirubin,Direct 1.2 mg/dL (0.0-0.2); Bilirubin,Indirect 1.1 mg/dL (0.0-1.0); Bilirubin,Total 2.3 mg/dL (0.3-1.0); Blood Urea Nitrogen 17 mg/dL (6-20); Carbon Dioxide 26 mEq/L (23-29); Chloride 105 mEq/L (98-107); Globulin 2.4 g/dL (2.4-3.5); Glucose 109 mg/dL (70-105); Magnesium 1.6 mg/dL (1.6-2.6); Osmolality,Calculated 286 (280-300); Potassium 4.1 mEq/L (3.5-5.1); Sodium 137 mEq/L (136-145); Total Protein 5.1 g/dL (6.4-8.9); eGFR For African Americans > 60 (> 60); eGFR For Non-African Americans > 60 (> 60)
[2021-04-04] MEDS: Metoprolol XL (24 HR) Succ 25 MG TAB.ER.24H PO SCH (08:52)
[2021-04-04] MEDS: Sacubitril/Valsartan 24/26 MG 1 TABLET PO SCH ×2 (08:53→20:41)
[2021-04-04] MEDS: *HR* Amiodarone 200 MG TABLET PO SCH (08:53)
[2021-04-04] MEDS: Apixaban 5 MG TABLET PO SCH ×2 (08:53→20:41)
[2021-04-04] MEDS: Isosorbide MONOnitrate (24 HR) 30 MG TAB.ER.24H PO SCH ×2 (08:53→20:41)
[2021-04-04] MEDS: *HR* OxyCODONE Immed Rel 5 MG TABLET PO PRN ×2 (09:01→18:38)
[2021-04-05] MEDS: Ipratropium/Albuterol Neb 3 ML IH SCH ×4 (04:04→15:41)
[2021-04-05 05:09] LABS: Alanine Aminotransferase 33 Units/L (7-52); Albumin 2.8 g/dL (3.5-5.7); Alkaline Phosphatase 291 Units/L (34-104); Aspartate Amino Transferase 30 Units/L (13-39); BUN/Creatinine Ratio 20 (6-26); Bilirubin,Direct 1.1 mg/dL (0.0-0.2); Bilirubin,Indirect 1.1 mg/dL (0.0-1.0); Bilirubin,Total 2.2 mg/dL (0.3-1.0); Blood Urea Nitrogen 15 mg/dL (6-20); Calcium 8.3 mg/dL (8.6-10.3); Carbon Dioxide 25 mEq/L (23-29); Chloride 104 mEq/L (98-107); Globulin 2.8 g/dL (2.4-3.5); Glucose 108 mg/dL (70-105); Osmolality,Calculated 283 (280-300); Potassium 4.2 mEq/L (3.5-5.1); Sodium 136 mEq/L (136-145); Total Protein 5.6 g/dL (6.4-8.9); eGFR For African Americans > 60 (> 60); eGFR For Non-African Americans > 60 (> 60)
[2021-04-05] MEDS: Piperacillin/Tazobactam 3.375 GM in 0.9 % Sodium Chloride Mini Bag 100 ML IVPB SCH ×2 (06:35→12:04)
[2021-04-05] MEDS: Doxycycline 100 MG in 0.9 % Sodium Chloride Mini Bag 100 ML IVPB SCH (06:35)
[2021-04-05] MEDS: Apixaban 5 MG TABLET PO SCH (07:55)
[2021-04-05] MEDS: Sacubitril/Valsartan 24/26 MG 1 TABLET PO SCH (07:55)
[2021-04-05] MEDS: *HR* Amiodarone 200 MG TABLET PO SCH (07:56)
[2021-04-05] MEDS: Metoprolol XL (24 HR) Succ 25 MG TAB.ER.24H PO SCH (07:56)
[2021-04-05] MEDS: Isosorbide MONOnitrate (24 HR) 30 MG TAB.ER.24H PO SCH (07:56)
[2021-04-05] MEDS: *HR* OxyCODONE Immed Rel 5 MG TABLET PO PRN (09:57)
[2021-04-05 11:32] VITALS: BP 100/64; PULSE 59; TEMP 97.3
[2021-04-05 11:35] VITALS: O2SAT 97
== END 2021-04-05 16:46 | disposition home health service (06) | DRG 139 ==
LOC: EMEROOARM 05:56 → 3ANU 12:50 → SUATTDRO 12:50 → 3ANU 14:34
PROVIDERS: ADMIT Family Medicine; ATTEND Internal Medicine

== ENCOUNTER 2021-04-07 09:31 | Inpatient (IN) ==
[2021-04-07] MEDS ORDERED: Metoprolol XL (24 HR) Succ 25 MG TAB.ER.24H PO STA (09:56)
[2021-04-07] MEDS ORDERED: Isovue-370 500 ML BOTTLE IVP ONE (09:59)
[2021-04-07 11:50] LABS: Influenza A PCR Negative (Negative); Influenza B PCR Negative (Negative); Resp. Syncytial Virus PCR Negative (Negative); SARS-CoV-2 by PCR (In House) Negative (Negative)
[2021-04-07] MEDS ORDERED: Apixaban 5 MG TABLET PO ONE ×2 (12:00→12:56)
[2021-04-07] MEDS ORDERED: Naloxone 0.4 MG/ML INJ IVP PRN ×2 (12:50→23:38)
[2021-04-07] MEDS ORDERED: Ondansetron 4 MG/2 ML VIAL IVP PRN ×2 (12:50→23:38)
[2021-04-07] MEDS ORDERED: Nitroglycerin 0.4 MG TAB.SUBL SL PRN ×2 (12:53→23:38)
[2021-04-07] MEDS ORDERED: *HR* Heparin 5,000 UNIT/ML VIAL IVP ONE (13:31)
[2021-04-07] MEDS ORDERED: *HR* Heparin 5,000 UNIT/ML VIAL IVP PRN ×2 (13:31)
[2021-04-07] MEDS ORDERED: Heparin 25,000UNIT/250ML 1/2NS 25,000 UNIT/250 ML IV.SOLN IVC SCH (13:45)
[2021-04-07 15:16] LABS: Hematocrit 39.4 % (37.5-50.1); Hemoglobin 12.4 g/dL (12.9-16.9); Mean Corpuscular HGB Conc 31.5 g/dL (31.6-35.5); Mean Corpuscular Hemoglobin 31.7 pg (28.0-33.3); Mean Corpuscular Volume 100.8 fL (83.0-100.0); Mean Platelet Volume 11.4 fL (9.4-12.4); Platelet Count 291 K/mcL (140-400); Red Blood Count 3.91 M/mcL (4.19-5.50); Red Cell Distribution Width 20.6 % (11.5-14.5)
[2021-04-07 15:19] LABS: White Blood Count 19.7 K/mcL (4.3-11.1)
[2021-04-07 15:45] LABS: INR 1.5; Prothrombin Time 17.3 Seconds (9.4-12.1)
[2021-04-07] MEDS ORDERED: Piperacillin/Tazobactam 3.375 GM in 0.9 % Sodium Chloride Mini Bag 100 ML IVPB SCH (16:00)
[2021-04-07] MEDS ORDERED: *HR* Metoprolol 5 MG/5 ML VIAL IVP PRN (18:03)
[2021-04-07] MEDS ORDERED: Vancomycin 1,500 MG/265 ML IV.SOLN IVPB SCH (19:00)
[2021-04-07] MEDS ORDERED: CefOXitin 1,000 MG VIAL ONE (19:52)
[2021-04-07] MEDS ORDERED: *HR* FentaNYL (PF) 100 MCG/2 ML VIAL ONE (19:54)
[2021-04-07] MEDS ORDERED: *HR* Etomidate 40 MG/20 ML VIAL IVP ONE (19:54)
[2021-04-07] MEDS ORDERED: EPHEDrine 50 MG/ML VIAL ONE (19:56)
[2021-04-07] MEDS ORDERED: *HR* Midazolam HCl 2 MG/2 ML VIAL ONE (20:25)
[2021-04-07] MEDS ORDERED: Albumin Human 5% 0 GM/0 ML IV.SOLN ONE (20:53)
[2021-04-07] MEDS ORDERED: *HR* Vasopressin 20 UNIT/ML VIAL ONE (20:53)
[2021-04-07] MEDS ORDERED: Furosemide 40 MG/4 ML VIAL IVP SCH (21:00)
[2021-04-07] MEDS ORDERED: Apixaban 5 MG TABLET PO SCH (21:00)
[2021-04-07] MEDS ORDERED: Sacubitril/Valsartan 24/26 MG 1 TABLET PO SCH (21:00)
[2021-04-07] MEDS ORDERED: Isosorbide MONOnitrate (24 HR) 30 MG TAB.ER.24H PO SCH (21:00)
[2021-04-07 21:08] LABS: ABG Base Excess -4 mEq/L (-2 to 3); ABG Chloride 108 mEq/L (98-107); ABG Glucose 109 mg/dL (60-95); ABG HCO3 23 mEq/L (21-27); ABG Ionized Calcium 1.15 mmol/L (1.15-1.35); ABG Oxygen Saturation 99 % (95-98); ABG PCO2 48 mmHg (35-45); ABG PH 7.29 pH Units (7.32-7.45); ABG PO2 139 mmHg (85-104); ABG TCO2 24 mEq/L (20-26)
[2021-04-07] MEDS ORDERED: *HR* HYDROmorphone 2 MG TABLET PO PRN ×2 (21:24→23:38)
[2021-04-07] MEDS ORDERED: Acetaminophen IV 1,000 MG/100 ML BAG IVPB ONE ×3 (21:24→23:38)
[2021-04-07] MEDS ORDERED: *HR* HYDROmorphone (PF) 1 MG/ML SYRINGE IVP PRN ×2 (21:24→23:38)
[2021-04-07] MEDS ORDERED: *HR* OxyCODONE Immed Rel 5 MG TABLET PO PRN ×2 (21:24→23:38)
[2021-04-07] MEDS ORDERED: *HR* Labetalol 20 MG/4 ML SYRINGE IVP PRN ×2 (21:24→23:38)
[2021-04-07] MEDS ORDERED: Ondansetron 4 MG/2 ML VIAL ONE (21:26)
[2021-04-07] MEDS ORDERED: Sugammadex Sodium 200 MG/2 ML VIAL IV ONE (21:31)
[2021-04-07] MEDS ORDERED: Levalbuterol 1 PUFF INHALER IH SCH (22:00)
[2021-04-07] MEDS ORDERED: Levalbuterol Neb 0.63 MG/3 ML IH SCH (22:00)
[2021-04-07] MEDS ORDERED: Levalbuterol Neb 1.25 MG/3 ML IH SCH (22:00)
[2021-04-08] MEDS: Piperacillin/Tazobactam 3.375 GM in 0.9 % Sodium Chloride Mini Bag 100 ML IVPB SCH ×3 (00:08→15:08)
[2021-04-08] MEDS: *HR* Metoprolol 5 MG/5 ML VIAL IVP PRN ×3 (00:21→21:54)
[2021-04-08] MEDS: Morphine Sulfate 2 MG/ML SYRINGE IVP PRN ×3 (03:50→21:19)
[2021-04-08] MEDS: Levalbuterol Neb 1.25 MG/3 ML IH SCH ×4 (04:05→22:34)
[2021-04-08 06:04] LABS: Basophils % 0.1 %; Hemoglobin 12.4 g/dL (12.9-16.9); Immature Granulocytes % 1.3 % (0-4); Lymphocytes # 0.4 K/mcL (0.6-4.6); Lymphocytes % 2.4 %; Mean Corpuscular HGB Conc 30.2 g/dL (31.6-35.5); Mean Corpuscular Hemoglobin 31.7 pg (28.0-33.3); Mean Corpuscular Volume 104.9 fL (83.0-100.0); Mean Platelet Volume 11.7 fL (9.4-12.4); Monocytes # 0.5 K/mcL (0.0-1.3); Monocytes % 3.4 %; Neutrophils # 13.8 K/mcL (1.6-8.9); Nucleated Red Blood Cells 0.5 /100 WBC (0); Platelet Count 309 K/mcL (140-400); Red Blood Count 3.91 M/mcL (4.19-5.50); Red Cell Distribution Width 21.1 % (11.5-14.5); Segmented Neutrophils % 92.8 %; White Blood Count 14.9 K/mcL (4.3-11.1)
[2021-04-08] MEDS: Vancomycin 1,500 MG/265 ML IV.SOLN IVPB SCH ×2 (06:08→17:41)
[2021-04-08] MEDS: Sacubitril/Valsartan 24/26 MG 1 TABLET PO SCH ×2 (08:28→20:10)
[2021-04-08] MEDS: Isosorbide MONOnitrate (24 HR) 30 MG TAB.ER.24H PO SCH ×2 (08:29→20:10)
[2021-04-08] MEDS: Cyanocobalamin (B-12) 1,000 MCG TABLET PO SCH (08:29)
[2021-04-08] MEDS: Furosemide 40 MG/4 ML VIAL IVP SCH ×2 (08:29→20:11)
[2021-04-08] MEDS: *HR* Amiodarone 200 MG TABLET PO SCH (08:31)
[2021-04-08 08:42] LABS: BUN/Creatinine Ratio 21 (6-26); Blood Urea Nitrogen 21 mg/dL (6-20); Calcium 8.5 mg/dL (8.6-10.3); Carbon Dioxide 14 mEq/L (23-29); Chloride 106 mEq/L (98-107); Glucose 66 mg/dL (70-105); Magnesium 1.9 mg/dL (1.6-2.6); Osmolality,Calculated 289 (280-300); Phosphorous 4.4 mg/dL (2.7-4.5); Potassium 4.8 mEq/L (3.5-5.1); Sodium 139 mEq/L (136-145); eGFR For African Americans > 60 (> 60); eGFR For Non-African Americans > 60 (> 60)
[2021-04-08] MEDS ORDERED: Dapagliflozin Propanediol [Farxiga] 10 MG Tablet PO SCH (09:00)
[2021-04-08] MEDS ORDERED: Cyanocobalamin (B-12) 1,000 MCG TABLET PO SCH (09:00)
[2021-04-08] MEDS ORDERED: Metoprolol XL (24 HR) Succ 25 MG TAB.ER.24H PO SCH ×2 (09:00)
[2021-04-08] MEDS ORDERED: *HR* Amiodarone 200 MG TABLET PO SCH (09:00)
[2021-04-08] MEDS ORDERED: (Dapagliflozin Propanediol [Farxiga] 5 MG) PO SCH (09:00)
[2021-04-08] MEDS: Apixaban 5 MG TABLET PO SCH ×2 (10:43→20:11)
[2021-04-08] MEDS ORDERED: Acetaminophen 325 MG TABLET PO PRN (14:48)
[2021-04-08] MEDS: Metoprolol XL (24 HR) Succ 25 MG TAB.ER.24H PO SCH (15:09)
[2021-04-08] MEDS: traZODone 50 MG TABLET PO SCH (20:10)
[2021-04-08] MEDS ORDERED: traZODone 50 MG TABLET PO SCH (21:00)
[2021-04-08] MEDS: Ondansetron 4 MG/2 ML VIAL IVP PRN (21:19)
[2021-04-09] MEDS: Piperacillin/Tazobactam 3.375 GM in 0.9 % Sodium Chloride Mini Bag 100 ML IVPB SCH ×3 (00:28→14:53)
[2021-04-09] MEDS: *HR* OxyCODONE/APAP 5/325 TABLET PO PRN (03:29)
[2021-04-09] MEDS: Levalbuterol Neb 1.25 MG/3 ML IH SCH ×4 (04:23→21:56)
[2021-04-09] MEDS: Ondansetron 4 MG/2 ML VIAL IVP PRN (05:20)
[2021-04-09] MEDS: *HR* Metoprolol 5 MG/5 ML VIAL IVP PRN (06:17)
[2021-04-09 06:22] LABS: Hematocrit 38.8 % (37.5-50.1); Hemoglobin 11.7 g/dL (12.9-16.9); Mean Corpuscular HGB Conc 30.2 g/dL (31.6-35.5); Mean Corpuscular Hemoglobin 31.4 pg (28.0-33.3); Mean Platelet Volume 11.2 fL (9.4-12.4); Platelet Count 272 K/mcL (140-400); Red Blood Count 3.73 M/mcL (4.19-5.50); Red Cell Distribution Width 20.6 % (11.5-14.5); White Blood Count 16.4 K/mcL (4.3-11.1)
[2021-04-09 06:40] LABS: BUN/Creatinine Ratio 33 (6-26); Blood Urea Nitrogen 46 mg/dL (6-20); Calcium 7.9 mg/dL (8.6-10.3); Carbon Dioxide 19 mEq/L (23-29); Chloride 106 mEq/L (98-107); Glucose 165 mg/dL (70-105); Magnesium 1.9 mg/dL (1.6-2.6); Osmolality,Calculated 300 (280-300); Sodium 137 mEq/L (136-145); eGFR For African Americans > 60 (> 60); eGFR For Non-African Americans 52 (> 60)
[2021-04-09] MEDS: Isosorbide MONOnitrate (24 HR) 30 MG TAB.ER.24H PO SCH ×2 (07:46→21:39)
[2021-04-09] MEDS: Metoprolol XL (24 HR) Succ 25 MG TAB.ER.24H PO SCH (07:46)
[2021-04-09] MEDS: Cyanocobalamin (B-12) 1,000 MCG TABLET PO SCH (07:46)
[2021-04-09] MEDS: Apixaban 5 MG TABLET PO SCH ×2 (07:47→21:39)
[2021-04-09] MEDS: *HR* Amiodarone 200 MG TABLET PO SCH (07:48)
[2021-04-09] MEDS: Sacubitril/Valsartan 24/26 MG 1 TABLET PO SCH (07:49)
[2021-04-09] MEDS: Furosemide 40 MG/4 ML VIAL IVP SCH (07:49)
[2021-04-09] MEDS ORDERED: NON-FORMULARY MEDICATION 1 EACH EACH (Apixaban [Eliquis] 5 MG Tab.Ds.Pk) PO SCH (09:00)
[2021-04-09] MEDS ORDERED: 0.9 % Sodium Chloride 1,000 ML IVC ONE (09:17)
[2021-04-09] MEDS ORDERED: Vancomycin 1,500 MG/265 ML IV.SOLN IVPB SCH (17:00)
[2021-04-09] MEDS ORDERED: Vancomycin 1,250 MG/262.5 ML IV.SOLN IVPB SCH (17:15)
[2021-04-09] MEDS: traZODone 50 MG TABLET PO SCH (21:38)
[2021-04-09] MEDS: Cefepime HCl 2,000 MG in Water for inj. (sterile) 10 ML IVP SCH (21:39)
[2021-04-09] MEDS: *HR* HYDROcodone/Acet 5/325 mg TABLET PO PRN (21:49)
[2021-04-10] MEDS: Levalbuterol Neb 1.25 MG/3 ML IH SCH ×4 (03:36→21:41)
[2021-04-10] MEDS: *HR* OxyCODONE/APAP 5/325 TABLET PO PRN (04:22)
[2021-04-10 07:26] LABS: Hematocrit 34.8 % (37.5-50.1); Mean Corpuscular HGB Conc 31.6 g/dL (31.6-35.5); Mean Corpuscular Hemoglobin 31.7 pg (28.0-33.3); Mean Corpuscular Volume 100.3 fL (83.0-100.0); Mean Platelet Volume 11.3 fL (9.4-12.4); Platelet Count 208 K/mcL (140-400); Red Blood Count 3.47 M/mcL (4.19-5.50); Red Cell Distribution Width 19.8 % (11.5-14.5); White Blood Count 13.1 K/mcL (4.3-11.1)
[2021-04-10 07:44] LABS: BUN/Creatinine Ratio 34 (6-26); Blood Urea Nitrogen 35 mg/dL (6-20); Calcium 7.6 mg/dL (8.6-10.3); Carbon Dioxide 24 mEq/L (23-29); Chloride 107 mEq/L (98-107); Glucose 201 mg/dL (70-105); Osmolality,Calculated 296 (280-300); Potassium 4.4 mEq/L (3.5-5.1); Sodium 136 mEq/L (136-145); eGFR For African Americans > 60 (> 60); eGFR For Non-African Americans > 60 (> 60)
[2021-04-10] MEDS: Apixaban 5 MG TABLET PO SCH ×2 (08:07→19:53)
[2021-04-10] MEDS: Metoprolol XL (24 HR) Succ 25 MG TAB.ER.24H PO SCH (08:07)
[2021-04-10] MEDS: *HR* Amiodarone 200 MG TABLET PO SCH (08:07)
[2021-04-10] MEDS: Isosorbide MONOnitrate (24 HR) 30 MG TAB.ER.24H PO SCH ×2 (08:07→19:53)
[2021-04-10] MEDS: Cyanocobalamin (B-12) 1,000 MCG TABLET PO SCH (08:07)
[2021-04-10] MEDS: Cefepime HCl 2,000 MG in Water for inj. (sterile) 10 ML IVP SCH ×2 (08:10→19:53)
[2021-04-10] MEDS: Vancomycin 1,500 MG/265 ML IV.SOLN IVPB SCH (11:01)
[2021-04-10] MEDS ORDERED: D5% in Water 1,000 ML IVC PRN (12:38)
[2021-04-10] MEDS ORDERED: *HR* Dextrose 50 % in Water (Vial) 50 ML VIAL IVP PRN (12:38)
[2021-04-10] MEDS ORDERED: Dextrose Gel 15 GM/37.5 ML TUBE PO PRN ×2 (12:38)
[2021-04-10 12:54] LABS: Estimated Average Glucose 103 mg/dl; Hemoglobin A1C 5.2 %
[2021-04-10] MEDS: Insulin LISPRO 300 UNITS/3 ML VIAL SUBQ SCH ×2 (17:15→21:36)
[2021-04-10] MEDS: *HR* HYDROcodone/Acet 5/325 mg TABLET PO PRN (17:54)
[2021-04-10] MEDS: traZODone 50 MG TABLET PO SCH (19:53)
[2021-04-11 02:09] LABS: Basophils % 0.1 %; Hematocrit 36.4 % (37.5-50.1); Hemoglobin 11.7 g/dL (12.9-16.9); Immature Granulocytes % 0.6 % (0-4); Lymphocytes # 0.5 K/mcL (0.6-4.6); Lymphocytes % 3.8 %; Mean Corpuscular HGB Conc 32.1 g/dL (31.6-35.5); Mean Corpuscular Hemoglobin 32.9 pg (28.0-33.3); Mean Corpuscular Volume 102.2 fL (83.0-100.0); Mean Platelet Volume 11.4 fL (9.4-12.4); Monocytes # 0.5 K/mcL (0.0-1.3); Neutrophils # 11.3 K/mcL (1.6-8.9); Nucleated Red Blood Cells 0.4 /100 WBC (0); Platelet Count 199 K/mcL (140-400); Red Blood Count 3.56 M/mcL (4.19-5.50); Red Cell Distribution Width 19.9 % (11.5-14.5); Segmented Neutrophils % 91.5 %; White Blood Count 12.3 K/mcL (4.3-11.1)
[2021-04-11 02:27] LABS: BUN/Creatinine Ratio 28 (6-26); Blood Urea Nitrogen 25 mg/dL (6-20); Calcium 7.9 mg/dL (8.6-10.3); Carbon Dioxide 23 mEq/L (23-29); Chloride 108 mEq/L (98-107); Glucose 180 mg/dL (70-105); Osmolality,Calculated 291 (280-300); Potassium 4.4 mEq/L (3.5-5.1); Sodium 136 mEq/L (136-145); eGFR For African Americans > 60 (> 60); eGFR For Non-African Americans > 60 (> 60)
[2021-04-11] MEDS: Levalbuterol Neb 1.25 MG/3 ML IH SCH ×4 (03:46→21:08)
[2021-04-11] MEDS: Apixaban 5 MG TABLET PO SCH ×2 (09:35→21:12)
[2021-04-11] MEDS: *HR* Amiodarone 200 MG TABLET PO SCH (09:35)
[2021-04-11] MEDS: Cyanocobalamin (B-12) 1,000 MCG TABLET PO SCH (09:35)
[2021-04-11] MEDS: Isosorbide MONOnitrate (24 HR) 30 MG TAB.ER.24H PO SCH ×2 (09:35→21:13)
[2021-04-11] MEDS: Metoprolol XL (24 HR) Succ 25 MG TAB.ER.24H PO SCH (09:36)
[2021-04-11] MEDS: Cefepime HCl 2,000 MG in Water for inj. (sterile) 10 ML IVP SCH ×2 (09:36→21:13)
[2021-04-11] MEDS: Insulin LISPRO 300 UNITS/3 ML VIAL SUBQ SCH ×4 (09:41→21:14)
[2021-04-11] MEDS: Vancomycin 1,500 MG/265 ML IV.SOLN IVPB SCH (09:48)
[2021-04-11] MEDS ORDERED: 0.9 % Sodium Chloride 250 ML IVC ONE ×2 (13:49→15:19)
[2021-04-11] MEDS ORDERED: *HR* Digoxin 0.5 MG/2 ML AMPUL IVP ONE (17:12)
[2021-04-11] MEDS ORDERED: Isovue-370 500 ML BOTTLE IVP ONE (17:56)
[2021-04-11 18:35] LABS: Hematocrit 39.2 % (37.5-50.1); Hemoglobin 12.4 g/dL (12.9-16.9)
[2021-04-11] MEDS: *HR* HYDROcodone/Acet 5/325 mg TABLET PO PRN (19:00)
[2021-04-11] MEDS: traZODone 50 MG TABLET PO SCH (21:13)
[2021-04-11] MEDS: Sacubitril/Valsartan 24/26 MG 1 TABLET PO SCH (21:13)
[2021-04-12] MEDS: Levalbuterol Neb 1.25 MG/3 ML IH SCH ×4 (04:41→22:56)
[2021-04-12 07:18] LABS: BUN/Creatinine Ratio 24 (6-26); Blood Urea Nitrogen 20 mg/dL (6-20); Calcium 8.6 mg/dL (8.6-10.3); Carbon Dioxide 27 mEq/L (23-29); Chloride 107 mEq/L (98-107); Glucose 126 mg/dL (70-105); Osmolality,Calculated 292 (280-300); Potassium 4.3 mEq/L (3.5-5.1); Sodium 139 mEq/L (136-145); eGFR For African Americans > 60 (> 60); eGFR For Non-African Americans > 60 (> 60)
[2021-04-12] MEDS: Insulin LISPRO 300 UNITS/3 ML VIAL SUBQ SCH ×4 (07:23→21:30)
[2021-04-12] MEDS: Metoprolol XL (24 HR) Succ 25 MG TAB.ER.24H PO SCH (07:36)
[2021-04-12] MEDS: Cefepime HCl 2,000 MG in Water for inj. (sterile) 10 ML IVP SCH (07:37)
[2021-04-12] MEDS: Isosorbide MONOnitrate (24 HR) 30 MG TAB.ER.24H PO SCH ×2 (07:37→21:41)
[2021-04-12] MEDS: *HR* Amiodarone 200 MG TABLET PO SCH (07:37)
[2021-04-12] MEDS: Sacubitril/Valsartan 24/26 MG 1 TABLET PO SCH ×2 (07:37→21:41)
[2021-04-12] MEDS: Cyanocobalamin (B-12) 1,000 MCG TABLET PO SCH (07:37)
[2021-04-12] MEDS: *HR* OxyCODONE/APAP 5/325 TABLET PO PRN ×2 (10:06→16:50)
[2021-04-12] MEDS: Vancomycin 1,500 MG/265 ML IV.SOLN IVPB SCH (10:53)
[2021-04-12 12:40] LABS: Basophils % 0.1 %; Eosinophils % 0.1 %; Hematocrit 39.3 % (37.5-50.1); Hemoglobin 12.3 g/dL (12.9-16.9); Immature Granulocytes % 0.5 % (0-4); Lymphocytes # 0.8 K/mcL (0.6-4.6); Lymphocytes % 5.3 %; Mean Corpuscular HGB Conc 31.3 g/dL (31.6-35.5); Mean Corpuscular Hemoglobin 32.1 pg (28.0-33.3); Mean Corpuscular Volume 102.6 fL (83.0-100.0); Mean Platelet Volume 11.9 fL (9.4-12.4); Monocytes # 0.9 K/mcL (0.0-1.3); Monocytes % 6.3 %; Nucleated Red Blood Cells 0.3 /100 WBC (0); Platelet Count 174 K/mcL (140-400); Red Blood Count 3.83 M/mcL (4.19-5.50); Red Cell Distribution Width 20.4 % (11.5-14.5); Segmented Neutrophils % 87.7 %; White Blood Count 14.8 K/mcL (4.3-11.1)
[2021-04-12] MEDS: Apixaban 5 MG TABLET PO SCH ×2 (13:34→21:41)
[2021-04-12] MEDS: Cefepime HCl 2,000 MG in Water for inj. (sterile) 20 ML IVP SCH ×2 (13:36→21:40)
[2021-04-12] MEDS: *HR* HYDROcodone/Acet 5/325 mg TABLET PO PRN (13:36)
[2021-04-12] MEDS ORDERED: Vancomycin 2,000 MG/520 ML IV.SOLN IVPB SCH (14:00)
[2021-04-12] MEDS ORDERED: *HR* Digoxin 0.125 MG TABLET PO SCH (14:45)
[2021-04-12] MEDS: traZODone 50 MG TABLET PO SCH (21:41)
[2021-04-13] MEDS: Levalbuterol Neb 1.25 MG/3 ML IH SCH ×4 (04:09→22:08)
[2021-04-13] MEDS: Cefepime HCl 2,000 MG in Water for inj. (sterile) 20 ML IVP SCH ×3 (04:58→21:14)
[2021-04-13 05:51] LABS: Mean Platelet Volume 11.9 fL (9.4-12.4)
[2021-04-13 05:53] LABS: Hematocrit 43.2 % (37.5-50.1); Hemoglobin 12.9 g/dL (12.9-16.9); Immature Platelets 7.9 % (1.1-6.1); Mean Corpuscular HGB Conc 29.9 g/dL (31.6-35.5); Mean Corpuscular Volume 107.2 fL (83.0-100.0); Red Blood Count 4.03 M/mcL (4.19-5.50); Red Cell Distribution Width 20.5 % (11.5-14.5); White Blood Count 16.2 K/mcL (4.3-11.1)
[2021-04-13 06:08] LABS: BUN/Creatinine Ratio 20 (6-26); Blood Urea Nitrogen 16 mg/dL (6-20); Calcium 8.3 mg/dL (8.6-10.3); Carbon Dioxide 27 mEq/L (23-29); Chloride 108 mEq/L (98-107); Glucose 119 mg/dL (70-105); Osmolality,Calculated 288 (280-300); Potassium 4.5 mEq/L (3.5-5.1); Sodium 138 mEq/L (136-145); eGFR For African Americans > 60 (> 60); eGFR For Non-African Americans > 60 (> 60)
[2021-04-13] MEDS: Insulin LISPRO 300 UNITS/3 ML VIAL SUBQ SCH ×4 (08:11→20:40)
[2021-04-13] MEDS ORDERED: *HR* Digoxin 0.25 MG TABLET PO ONE ×2 (08:49→18:00)
[2021-04-13] MEDS ORDERED: Vancomycin 1,750 MG/517.5 ML IV.SOLN IVPB SCH (09:00)
[2021-04-13 09:11] LABS: Digoxin 0.6 ng/mL (0.8-2.0)
[2021-04-13] MEDS: *HR* Amiodarone 200 MG TABLET PO SCH (09:59)
[2021-04-13] MEDS: Cyanocobalamin (B-12) 1,000 MCG TABLET PO SCH (09:59)
[2021-04-13] MEDS: Sacubitril/Valsartan 24/26 MG 1 TABLET PO SCH ×2 (10:00→20:35)
[2021-04-13] MEDS: Isosorbide MONOnitrate (24 HR) 30 MG TAB.ER.24H PO SCH ×2 (10:01→20:35)
[2021-04-13] MEDS: Apixaban 5 MG TABLET PO SCH ×2 (10:01→20:35)
[2021-04-13] MEDS: Vancomycin 2,000 MG/520 ML IV.SOLN IVPB SCH (10:05)
[2021-04-13] MEDS: traZODone 50 MG TABLET PO SCH (20:35)
[2021-04-14] MEDS ORDERED: *HR* Digoxin 0.25 MG TABLET PO ONE (02:00)
[2021-04-14] MEDS: Levalbuterol Neb 1.25 MG/3 ML IH SCH ×4 (04:17→22:13)
[2021-04-14] MEDS: Cefepime HCl 2,000 MG in Water for inj. (sterile) 20 ML IVP SCH ×3 (05:39→21:35)
[2021-04-14 06:19] LABS: BUN/Creatinine Ratio 18 (6-26); Blood Urea Nitrogen 14 mg/dL (6-20); Carbon Dioxide 29 mEq/L (23-29); Chloride 107 mEq/L (98-107); Glucose 121 mg/dL (70-105); Osmolality,Calculated 290 (280-300); Potassium 3.9 mEq/L (3.5-5.1); Sodium 139 mEq/L (136-145); eGFR For African Americans > 60 (> 60); eGFR For Non-African Americans > 60 (> 60)
[2021-04-14 06:53] LABS: Hematocrit 33.3 % (37.5-50.1); Hemoglobin 10.4 g/dL (12.9-16.9); Mean Corpuscular HGB Conc 31.2 g/dL (31.6-35.5); Mean Corpuscular Hemoglobin 31.6 pg (28.0-33.3); Mean Corpuscular Volume 101.2 fL (83.0-100.0); Mean Platelet Volume 11.4 fL (9.4-12.4); Platelet Count 121 K/mcL (140-400); Red Blood Count 3.29 M/mcL (4.19-5.50); Red Cell Distribution Width 19.8 % (11.5-14.5); White Blood Count 13.1 K/mcL (4.3-11.1)
[2021-04-14] MEDS: Vancomycin 2,000 MG/520 ML IV.SOLN IVPB SCH (08:31)
[2021-04-14] MEDS: *HR* Amiodarone 200 MG TABLET PO SCH (08:31)
[2021-04-14] MEDS: Isosorbide MONOnitrate (24 HR) 30 MG TAB.ER.24H PO SCH ×2 (08:31→21:35)
[2021-04-14] MEDS: Cyanocobalamin (B-12) 1,000 MCG TABLET PO SCH (08:31)
[2021-04-14] MEDS: Apixaban 5 MG TABLET PO SCH (08:31)
[2021-04-14] MEDS: Sacubitril/Valsartan 24/26 MG 1 TABLET PO SCH ×2 (08:31→21:35)
[2021-04-14] MEDS: Insulin LISPRO 300 UNITS/3 ML VIAL SUBQ SCH ×4 (08:32→21:21)
[2021-04-14] MEDS ORDERED: *HR* Digoxin 0.5 MG/2 ML AMPUL IVP ONE ×2 (08:49→16:50)
[2021-04-14 10:20] LABS: Calcium 7.8 mg/dL (8.6-10.3)
[2021-04-14] MEDS ORDERED: Apixaban 5 MG TABLET PO ONE (21:00)
[2021-04-14] MEDS: traZODone 50 MG TABLET PO SCH (21:35)
[2021-04-14] MEDS: Nystatin POWDER 30 GM BOTTLE TP SCH (23:57)
[2021-04-15] MEDS: Levalbuterol Neb 1.25 MG/3 ML IH SCH ×4 (03:14→21:03)
[2021-04-15] MEDS: Ondansetron 4 MG/2 ML VIAL IVP PRN (03:27)
[2021-04-15] MEDS: Cefepime HCl 2,000 MG in Water for inj. (sterile) 20 ML IVP SCH ×3 (05:45→19:59)
[2021-04-15] MEDS: Cyanocobalamin (B-12) 1,000 MCG TABLET PO SCH (08:08)
[2021-04-15] MEDS: Nystatin POWDER 30 GM BOTTLE TP SCH ×2 (08:08→19:59)
[2021-04-15] MEDS: Furosemide 40 MG TABLET PO SCH (08:08)
[2021-04-15] MEDS: Apixaban 5 MG TABLET PO SCH (08:08)
[2021-04-15] MEDS: Sacubitril/Valsartan 24/26 MG 1 TABLET PO SCH ×2 (08:08→19:58)
[2021-04-15] MEDS: Insulin LISPRO 300 UNITS/3 ML VIAL SUBQ SCH ×4 (08:08→19:58)
[2021-04-15] MEDS: Isosorbide MONOnitrate (24 HR) 30 MG TAB.ER.24H PO SCH ×2 (08:08→19:58)
[2021-04-15 08:32] LABS: Hematocrit 36.9 % (37.5-50.1); Hemoglobin 11.7 g/dL (12.9-16.9); Mean Corpuscular HGB Conc 31.7 g/dL (31.6-35.5); Mean Corpuscular Hemoglobin 32.2 pg (28.0-33.3); Mean Corpuscular Volume 101.7 fL (83.0-100.0); Mean Platelet Volume 11.1 fL (9.4-12.4); Platelet Count 151 K/mcL (140-400); Red Blood Count 3.63 M/mcL (4.19-5.50); Red Cell Distribution Width 19.6 % (11.5-14.5); White Blood Count 15.4 K/mcL (4.3-11.1)
[2021-04-15 08:50] LABS: BUN/Creatinine Ratio 16 (6-26); Blood Urea Nitrogen 12 mg/dL (6-20); Carbon Dioxide 29 mEq/L (23-29); Chloride 104 mEq/L (98-107); Glucose 120 mg/dL (70-105); Osmolality,Calculated 285 (280-300); Potassium 4.2 mEq/L (3.5-5.1); Sodium 137 mEq/L (136-145); eGFR For African Americans > 60 (> 60); eGFR For Non-African Americans > 60 (> 60)
[2021-04-15] MEDS ORDERED: Isovue-370 500 ML BOTTLE IVP ONE (10:52)
[2021-04-15] MEDS: Vancomycin 2,000 MG/520 ML IV.SOLN IVPB SCH (10:56)
[2021-04-15] MEDS ORDERED: *HR* Digoxin 0.5 MG/2 ML AMPUL IVP ONE (12:50)
[2021-04-15 17:34] LABS: Adenovirus Not Detected (Not Detect); Bordetella Pertussis Not Detected (Not Detect); Chlamydophila pneumoniae Not Detected (Not Detect); Coronavirus 229E Not Detected (Not Detect); Coronavirus HKU1 Not Detected (Not Detect); Coronavirus NL63 Not Detected (Not Detect); Coronavirus OC43 Not Detected (Not Detect); Human Metapneumovirus Not Detected (Not Detect); Human Rhinovirus/Enterovirus Not Detected (Not Detect); Influenza A Subtype 2009 H1 Not Detected (Not Detect); Influenza B Not Detected (Not Detect); Mycoplasma pneumoniae Not Detected (Not Detect); Parainfluenza Virus 1 Not Detected (Not Detect); Parainfluenza Virus 2 Not Detected (Not Detect); Parainfluenza Virus 3 Not Detected (Not Detect); Parainfluenza Virus 4 Not Detected (Not Detect); Respiratory Syncytial Virus Not Detected (Not Detect); SARS-CoV-2 Not Detected (Not Detect)
[2021-04-15] MEDS: traZODone 50 MG TABLET PO SCH (19:59)
[2021-04-16 02:52] LABS: Hematocrit 38.1 % (37.5-50.1); Hemoglobin 11.7 g/dL (12.9-16.9); Mean Corpuscular HGB Conc 30.7 g/dL (31.6-35.5); Mean Corpuscular Volume 100.8 fL (83.0-100.0); Mean Platelet Volume 11.1 fL (9.4-12.4); Platelet Count 163 K/mcL (140-400); Red Blood Count 3.78 M/mcL (4.19-5.50)
[2021-04-16 03:13] LABS: BUN/Creatinine Ratio 18 (6-26); Blood Urea Nitrogen 13 mg/dL (6-20); Carbon Dioxide 30 mEq/L (23-29); Chloride 102 mEq/L (98-107); Glucose 145 mg/dL (70-105); Osmolality,Calculated 287 (280-300); Potassium 3.9 mEq/L (3.5-5.1); Sodium 137 mEq/L (136-145); eGFR For African Americans > 60 (> 60); eGFR For Non-African Americans > 60 (> 60)
[2021-04-16] MEDS: Levalbuterol Neb 1.25 MG/3 ML IH SCH ×4 (03:26→20:39)
[2021-04-16] MEDS: Cefepime HCl 2,000 MG in Water for inj. (sterile) 20 ML IVP SCH ×3 (05:15→21:39)
[2021-04-16] MEDS: Isosorbide MONOnitrate (24 HR) 30 MG TAB.ER.24H PO SCH ×2 (08:20→21:40)
[2021-04-16] MEDS: Sacubitril/Valsartan 24/26 MG 1 TABLET PO SCH ×2 (08:20→21:40)
[2021-04-16] MEDS: Cyanocobalamin (B-12) 1,000 MCG TABLET PO SCH (08:21)
[2021-04-16] MEDS: Furosemide 40 MG TABLET PO SCH (08:21)
[2021-04-16] MEDS: Nystatin POWDER 30 GM BOTTLE TP SCH ×2 (08:33→21:40)
[2021-04-16] MEDS: Insulin LISPRO 300 UNITS/3 ML VIAL SUBQ SCH ×4 (08:40→20:35)
[2021-04-16] MEDS ORDERED: Vancomycin 1,250 MG/262.5 ML IV.SOLN IVPB SCH (09:00)
[2021-04-16 10:03] LABS: Lactate Dehydrogenase 560 Units/L (140-271); Total Protein 5.9 g/dL (6.4-8.9)
[2021-04-16 17:06] LABS: RBC,Pleural Fluid 5000 RBC/mcL
[2021-04-16 17:12] LABS: Glucose,Pleural Fluid 150 mg/dL (No Ref Range); LDH,Pleural Fluid 149 Units/L (No Ref Range); Total Protein,Pleural Fluid < 2.0 g/dL
[2021-04-16 19:14] LABS: Appearance of Pleural Fl Cloudy (Clear)
[2021-04-16] MEDS: traZODone 50 MG TABLET PO SCH (21:39)
[2021-04-16] MEDS: Apixaban 5 MG TABLET PO SCH (21:40)
[2021-04-16 21:44] LABS: Basophils,Pleural Fluid 0 %; Eosinophils,Pleural Fluid 0 %
[2021-04-17] MEDS: Levalbuterol Neb 1.25 MG/3 ML IH SCH ×4 (04:26→21:49)
[2021-04-17] MEDS: Cefepime HCl 2,000 MG in Water for inj. (sterile) 20 ML IVP SCH ×3 (06:23→20:01)
[2021-04-17] MEDS: Sacubitril/Valsartan 24/26 MG 1 TABLET PO SCH ×2 (08:52→19:57)
[2021-04-17] MEDS: Apixaban 5 MG TABLET PO SCH ×2 (08:52→19:57)
[2021-04-17] MEDS: Furosemide 40 MG TABLET PO SCH (08:52)
[2021-04-17] MEDS: Isosorbide MONOnitrate (24 HR) 30 MG TAB.ER.24H PO SCH ×2 (08:52→19:57)
[2021-04-17] MEDS: Cyanocobalamin (B-12) 1,000 MCG TABLET PO SCH (08:53)
[2021-04-17] MEDS: Insulin LISPRO 300 UNITS/3 ML VIAL SUBQ SCH ×4 (08:54→19:57)
[2021-04-17] MEDS: Nystatin POWDER 30 GM BOTTLE TP SCH ×2 (08:55→19:57)
[2021-04-17] MEDS: *HR* HYDROcodone/Acet 5/325 mg TABLET PO PRN (14:52)
[2021-04-17] MEDS: traZODone 50 MG TABLET PO SCH (19:57)
[2021-04-18] MEDS ORDERED: *HR* Metoprolol 5 MG/5 ML VIAL IVP ONE (03:49)
[2021-04-18] MEDS: Levalbuterol Neb 1.25 MG/3 ML IH SCH ×4 (04:39→21:26)
[2021-04-18 04:59] LABS: BUN/Creatinine Ratio 17 (6-26); Blood Urea Nitrogen 12 mg/dL (6-20); Calcium 7.4 mg/dL (8.6-10.3); Carbon Dioxide 35 mEq/L (23-29); Chloride 99 mEq/L (98-107); Glucose 158 mg/dL (70-105); Magnesium 1.6 mg/dL (1.6-2.6); Osmolality,Calculated 289 (280-300); Potassium 3.2 mEq/L (3.5-5.1); Sodium 138 mEq/L (136-145); eGFR For African Americans > 60 (> 60); eGFR For Non-African Americans > 60 (> 60)
[2021-04-18] MEDS: Cefepime HCl 2,000 MG in Water for inj. (sterile) 20 ML IVP SCH (05:25)
[2021-04-18] MEDS ORDERED: Furosemide 40 MG/4 ML VIAL IVP ONE (05:41)
[2021-04-18] MEDS ORDERED: methylPREDNISolone 125 MG/2 ML VIAL IVP ONE (05:41)
[2021-04-18 06:05] LABS: VBG HCO3 34 mEq/L (21-27); VBG PCO2 55 mmHg (41-51); VBG PO2 48 mmHg (25-50)
[2021-04-18] MEDS ORDERED: Potassium Chloride 40 MEQ, Lidocaine 1% 2 ML in 0.9 % Sodium Chloride 500 ML IVPB ONE (06:15)
[2021-04-18 06:56] LABS: Adenovirus Not Detected (Not Detect); Bordetella Pertussis Not Detected (Not Detect); Chlamydophila pneumoniae Not Detected (Not Detect); Coronavirus 229E Not Detected (Not Detect); Coronavirus HKU1 Not Detected (Not Detect); Coronavirus NL63 Not Detected (Not Detect); Coronavirus OC43 Not Detected (Not Detect); Human Metapneumovirus Not Detected (Not Detect); Human Rhinovirus/Enterovirus Not Detected (Not Detect); Influenza A Subtype 2009 H1 Not Detected (Not Detect); Influenza B Not Detected (Not Detect); Mycoplasma pneumoniae Not Detected (Not Detect); Parainfluenza Virus 1 Not Detected (Not Detect); Parainfluenza Virus 2 Not Detected (Not Detect); Parainfluenza Virus 3 Not Detected (Not Detect); Parainfluenza Virus 4 Not Detected (Not Detect); Respiratory Syncytial Virus Not Detected (Not Detect); SARS-CoV-2 Not Detected (Not Detect)
[2021-04-18] MEDS: Sacubitril/Valsartan 24/26 MG 1 TABLET PO SCH ×2 (09:00→21:10)
[2021-04-18] MEDS: Isosorbide MONOnitrate (24 HR) 30 MG TAB.ER.24H PO SCH ×2 (09:00→21:10)
[2021-04-18] MEDS: Nystatin POWDER 30 GM BOTTLE TP SCH (09:01)
[2021-04-18] MEDS: Insulin LISPRO 300 UNITS/3 ML VIAL SUBQ SCH ×4 (09:01→21:14)
[2021-04-18] MEDS: Furosemide 40 MG TABLET PO SCH ×2 (09:01→16:59)
[2021-04-18] MEDS: Cyanocobalamin (B-12) 1,000 MCG TABLET PO SCH (09:01)
[2021-04-18] MEDS: Apixaban 5 MG TABLET PO SCH ×2 (09:01→21:10)
[2021-04-18] MEDS: traZODone 50 MG TABLET PO SCH (21:10)
[2021-04-19] MEDS: Levalbuterol Neb 1.25 MG/3 ML IH SCH ×4 (04:10→21:55)
[2021-04-19] MEDS: Nystatin POWDER 30 GM BOTTLE TP SCH ×2 (07:50→08:48)
[2021-04-19] MEDS: Insulin LISPRO 300 UNITS/3 ML VIAL SUBQ SCH ×4 (08:07→20:59)
[2021-04-19] MEDS: Cyanocobalamin (B-12) 1,000 MCG TABLET PO SCH (08:47)
[2021-04-19] MEDS: Apixaban 5 MG TABLET PO SCH ×2 (08:47→21:12)
[2021-04-19] MEDS: Isosorbide MONOnitrate (24 HR) 30 MG TAB.ER.24H PO SCH (08:47)
[2021-04-19] MEDS: predniSONE 20 MG TABLET PO SCH (08:48)
[2021-04-19] MEDS: Sacubitril/Valsartan 24/26 MG 1 TABLET PO SCH ×2 (08:48→21:12)
[2021-04-19] MEDS: Furosemide 40 MG in 0.9 % Sodium Chloride 50 ML IV SCH ×2 (08:50→21:16)
[2021-04-19] MEDS: Furosemide 40 MG TABLET PO SCH (09:33)
[2021-04-19 09:56] LABS: VBG HCO3 37 mEq/L (21-27); VBG PCO2 54 mmHg (41-51); VBG PH 7.45 pH Units (7.32-7.42); VBG PO2 186 mmHg (25-50)
[2021-04-19] MEDS: Albumin 25% 25gram/100mL 25 GM/100 ML IV.SOLN IVC SCH ×2 (18:08→21:16)
[2021-04-19] MEDS: traZODone 50 MG TABLET PO SCH (21:12)
[2021-04-19] MEDS: Ipratropium Neb 0.5 MG NEBULIZER IH SCH ×2 (21:55→22:53)
[2021-04-20 02:16] LABS: Hematocrit 38.1 % (37.5-50.1); Hemoglobin 11.5 g/dL (12.9-16.9); Mean Corpuscular HGB Conc 30.2 g/dL (31.6-35.5); Mean Corpuscular Hemoglobin 30.7 pg (28.0-33.3); Mean Corpuscular Volume 101.9 fL (83.0-100.0); Mean Platelet Volume 10.8 fL (9.4-12.4); Platelet Count 255 K/mcL (140-400); Red Blood Count 3.74 M/mcL (4.19-5.50); Red Cell Distribution Width 18.7 % (11.5-14.5); White Blood Count 18.8 K/mcL (4.3-11.1)
[2021-04-20 02:38] LABS: Alanine Aminotransferase 156 Units/L (7-52); Albumin 2.7 g/dL (3.5-5.7); Albumin/Globulin Ratio 0.9 (1.1-2.2); Alkaline Phosphatase 472 Units/L (34-104); Aspartate Amino Transferase 235 Units/L (13-39); BUN/Creatinine Ratio 17 (6-26); Bilirubin,Direct 0.5 mg/dL (0.0-0.2); Bilirubin,Indirect 0.5 mg/dL (0.0-1.0); Blood Urea Nitrogen 13 mg/dL (6-20); Calcium 7.9 mg/dL (8.6-10.3); Carbon Dioxide 38 mEq/L (23-29); Chloride 96 mEq/L (98-107); Globulin 2.9 g/dL (2.4-3.5); Glucose 195 mg/dL (70-105); Osmolality,Calculated 297 (280-300); Potassium 3.3 mEq/L (3.5-5.1); Sodium 141 mEq/L (136-145); Total Protein 5.6 g/dL (6.4-8.9); eGFR For African Americans > 60 (> 60); eGFR For Non-African Americans > 60 (> 60)
[2021-04-20] MEDS: Levalbuterol Neb 1.25 MG/3 ML IH SCH ×4 (04:32→21:34)
[2021-04-20] MEDS: Ipratropium Neb 0.5 MG NEBULIZER IH SCH ×6 (04:32→23:33)
[2021-04-20 06:34] LABS: Acetaminophen < 10 mcg/mL (10-20)
[2021-04-20] MEDS: Nystatin POWDER 30 GM BOTTLE TP SCH ×3 (08:09→20:30)
[2021-04-20] MEDS ORDERED: *HR* LORazepam 0.5 MG TABLET PO ONE (09:38)
[2021-04-20 10:37] LABS: Bacteria,Urine Few per hpf (None-Few); Bilirubin,Urine Negative (Negative); Blood,Urine Small (Negative); Budding Yeast,Urine Many per hpf (None Seen); Clarity,Urine Clear (Clear); Color,Urine Yellow (Yellow); Glucose,Urine (UA) 50 mg/dL (Normal); Ketones,Urine Negative (Negative); Leukocyte Esterase,Urine Negative (Negative); Mucus,Urine Few per lpf (None-Few); Nitrite,Urine Negative (Negative); PH,Urine 6.5 pH Units (5.0-8.0); Protein,Urine 70 mg/dL (Neg-Trace); RBC,Urine 15-30 per hpf (0-3); Specific Gravity,Urine 1.018 (1.010-1.025); Squamous Epithelial Cell,Urine Few per hpf (None-Few); Urobilinogen,Urine Normal (Normal)
[2021-04-20] MEDS: predniSONE 20 MG TABLET PO SCH (11:13)
[2021-04-20] MEDS: Insulin LISPRO 300 UNITS/3 ML VIAL SUBQ SCH ×4 (11:13→20:25)
[2021-04-20] MEDS: Sacubitril/Valsartan 24/26 MG 1 TABLET PO SCH ×2 (11:13→20:25)
[2021-04-20] MEDS: Furosemide 40 MG in 0.9 % Sodium Chloride 50 ML IV SCH ×2 (11:13→20:30)
[2021-04-20] MEDS: Apixaban 5 MG TABLET PO SCH ×2 (11:13→20:25)
[2021-04-20] MEDS: Cyanocobalamin (B-12) 1,000 MCG TABLET PO SCH (11:14)
[2021-04-20 18:51] VITALS: PULSE 82
[2021-04-20] MEDS: traZODone 50 MG TABLET PO SCH (20:25)
[2021-04-21 00:28] VITALS: TEMP 98.6
[2021-04-21] MEDS: Levalbuterol Neb 1.25 MG/3 ML IH SCH ×2 (04:05→11:11)
[2021-04-21] MEDS: Ipratropium Neb 0.5 MG NEBULIZER IH SCH (04:05)
[2021-04-21 06:20] VITALS: BP 138/97; O2SAT 90
[2021-04-21] MEDS: Insulin LISPRO 300 UNITS/3 ML VIAL SUBQ SCH (08:02)
[2021-04-21] MEDS ORDERED: Ipratropium Neb 0.5 MG NEBULIZER IH SCH (10:00)
== END 2021-04-21 14:29 | disposition expired | DRG 794 ==
LOC: EMEROOARM 09:31 → 2NENU 09:31 → SUATTDRO 13:09 → 2NENU 16:28 → SUATTDRO 04-08 17:05 → 3NENU 04-15 16:34
PROVIDERS: ADMIT Student in an Organized Health Care Education/Training Program; ATTEND Internal Medicine